=== PATIENT | male | born 1950 | race Caucasian/White ===

== ENCOUNTER → 2017-03-18 | Outpatient (CLI) | payer MEDICARE, OTHER ==
--- NOTE | 2017-03-18 16:41 | CT ---
EXAMINATION TYPE: CT foot RT wo con DATE OF EXAM: 03/18/2017 COMPARISON: NONE HISTORY: Injury 15 years ago. Surgery 5 years ago, pain since. Attention [address] DLP: 193.00 mGycm Automated exposure control for dose reduction was used. FINDINGS: Postsurgical repair along the anterior calcaneus is evident. Malone and screws are present. The metatarsals as visualized appear intact. Alignment with the cuneiforms is intact the joint spaces appear preserved. Hammertoes are present. No acute fractures are identified. Suspicious cortical ero ivonne to suggest osteomyelitis is not identified. Three-D reconstructed images are performed on the [employer] computer by the technologist and presented o n the computer. There is some mild increased density adjacent to the inferior medial malleolus. Correlate for ligamen t injury. Small amount of increased density may be adjacent to the inferior medial malleolus. No susp icious avulsions are identified. MRI could be performed to evaluate if there is clinical concern for ligament injury. Some narrowing of the medial ankle mortise may be present. IMPRESSION: INCREASED SIGNAL ADJACENT TO THE INFERIOR LATERAL MALLEOLUS AND TO A LESSER DEGREE INFERIOR MEDIAL MA LLEOLUS. THIS COULD BE RELATED TO LIGAMENT INJURY IN THE PROPER CLINICAL SETTING. MRI IS AVAILABLE IF ADDITIONAL EVALUATION IS REQUIRED. 2. NO ACUTE FRACTURES IDENTIFIED. 3. THE FIFTH METATARSAL APPEARS INTACT WITHOUT EVIDENCE OF FRACTURE OR EROSION.
== END | disposition home or self-care (01) ==
LOC: RADCTMAIN 14:51
PROVIDERS: ATTEND Orthopaedic Surgery
DX: M25.871 Other specified joint disorders, right ankle and foot (principal); Q66.7 Congenital pes cavus

== ENCOUNTER 2017-08-20 11:27 | Day surgery (SDC) | payer OTHER, MEDICARE ==
[2017-08-12 12:25] VITALS: BMI 47.0
[~2017-08-20 11:27] MED LIST: LACTATED RINGERS 1,000 ML IV SCH; TIMOLOL 0.5% OPHTH DROPS 5 ML BTL ONE
[2017-08-20] MEDS: CYCLOPENTOLATE 1% OPHTH SOLN 2 ML BTL OP ONE ×2 (12:23→13:05)
[2017-08-20] MEDS: FLURBIPROFEN 0.03% OPHTH DROPS 2.5 ML BTL OP ONE ×3 (12:26→13:17)
[2017-08-20] MEDS: PHENYLEPHRINE 10% OPHTH DROPS 5 ML BTL OP ONE ×3 (12:29→13:20)
[2017-08-20 13:23] VITALS: TEMP 99
[2017-08-20] MEDS ORDERED: PROPOFOL 10 MG/ML 20 ML VIAL IV ONE (13:48)
[2017-08-20] MEDS ORDERED: EPINEPHrine (PF) 0.5 ML in BALANCED SALT IRRIG SOLN COMB2 500 ML IRRIGATION ONE (13:57)
[2017-08-20] MEDS ORDERED: HYALURONATE SODIUM INTRAOCULAR 1 EACH SYRINGE (10MG/ML) INTRAOCULA ONE (14:00)
[2017-08-20] MEDS ORDERED: BALANCED SALT IRRIG SOLN COMB2 15 ML IRRIG.SOLN IRRIGATION ONE (14:00)
--- NOTE | 2017-08-20 14:09 | P.OP ---
Date of Procedure: 08/20/17 Procedure(s) Performed: PREOPERATIVE DIAGNOSIS: Cataract, right eye. POSTOPERATIVE DIAGNOSIS: Cataract, right eye. OPERATION: Phacoemulsification cataract, right eye. DESCRIPTION OF PROCEDURE: The patient was taken to the preoperative holding area. Intravenous Propofol was given so as to bring about adequate sedation. The following mixture was given for local anesthesia: 5 mL of 2% lidocaine, 5 mL of 0.75% Marcaine, and 1 mL of Wydase. Approximately 4 mL was injected in the retrobulbar space of the surgical eye. Additional 1 mL was then directed to the temporal area of the surgical eye. This was performed to allow adequate neurological block of the facial muscles. The patient was revived and then taken into the operative room. The patient was prepped and draped in the usual sterile manner for the operative eye. A lid speculum was put into position. The conjunctiva was resected back from the limbus in the 12 o'clock position. Bleeding was controlled with electrocautery. A #69 blade was then used and a half-thickness scleral incision approximately 1-mm posterior to the limbus was made on bare sclera. This was shelved in the clear cornea using a crescent knife. Next a 15-degree blade was used to make a stab incision at the 3 o' clock position at the corneolimbal interface. Keratome blade was then used and the superior wound was extended into the anterior chamber. Viscoelastic was injected into the anterior chamber and to maintain its form. Next, a cystotome was used and a continuous anterior capsulotomy was made without difficulty. Hydrodissection using a blunt cannula and BSS was performed. Phaco probe was then employed and a groove extending from 12 to 6 o'clock in the lens was created. A Herberth wand was used through the stab incision so as to perform a divide and conquer technique. Next an irrigation aspiration probe was utilized and any residual cortex was removed from the eye. Again, viscoelastic was injected into the anterior chamber. An Hao Restor 2.5 posterior chamber lens implant was placed in the cartridge and injected into the anterior chamber without difficulty. The Sinskey hook was utilized to spin the lens into position and this was again performed without any difficulty. The irrigation and aspiration probe was again employed and any residual viscoelastic was removed from the eye. Then BSS was injected into the limbal stab incision and the anterior chamber re-inflated. The conjunctiva was reapproximated using electrocautery. One drop of 0.25% Timoptic was placed over the corneal along with TobraDex ophthalmic ointment. Two sterile patches and a Gupta eye shield were taped into position. The patient was transported to the recovery room in stable condition. Pathology: none sent Condition: stable Disposition: same day
[2017-08-20 14:13] VITALS: RESP 18
[2017-08-20 14:39] VITALS: BP 114/71; PULSE 78
[2017-08-20] MEDS ORDERED: GENTAMICIN/PREDNISOL AC OPHTH OINT 3.5GM OPHTHALMIC ONE (23:00)
[2017-08-20] MEDS ORDERED: BUPIVACAINE (PF) 0.75% 5 ML, HYALURONIDASE, HUMAN RECOMB 150 UNIT, LIDOCAINE 2% (PF) 10... MISCELLANE ONE ×3 (23:00)
[2017-08-20] MEDS ORDERED: TIMOLOL 0.5% OPHTH DROPS 5 ML BTL OP ONE (23:00)
== END 2017-08-20 14:54 | disposition home or self-care (01) ==
LOC: OR 11:27
PROVIDERS: ATTEND Ophthalmology
DX: H25.11 Age-related nuclear cataract, right eye (principal); H04.129 Dry eye syndrome of unspecified lacrimal gland; I10 Essential (primary) hypertension; J30.2 Other seasonal allergic rhinitis; F32.9 Major depressive disorder, single episode, unspecified; M79.7 Fibromyalgia; K21.9 Gastro-esophageal reflux disease without esophagitis; Z91.048 Other nonmedicinal substance allergy status; Z79.891 Long term (current) use of opiate analgesic; Z79.82 Long term (current) use of aspirin; Z79.899 Other long term (current) drug therapy; Z88.5 Allergy status to narcotic agent; Z87.891 Personal history of nicotine dependence
CPT/HCPCS: 66984; V2632; V2788; J3470; J2001; J0171; J2704

== ENCOUNTER 2017-10-08 11:46 | Day surgery (SDC) | payer MEDICARE, OTHER ==
[2017-10-03 14:44] VITALS: BMI 47.3
[~2017-10-08 11:46] MED LIST changes: +LIDOCAINE 1% 20 ML VIAL (10MG/ML) FOR IV START INTRADERMA PRN; +ONDANSETRON 4 MG/2 ML VIAL IVP ONE; -TIMOLOL 0.5% OPHTH DROPS 5 ML BTL ONE
[2017-10-08] MEDS: PHENYLEPHRINE 10% OPHTH DROPS 5 ML BTL OP ONE ×3 (14:47→15:05)
[2017-10-08] MEDS: CYCLOPENTOLATE 1% OPHTH SOLN 2 ML BTL OP ONE ×3 (14:50→15:08)
[2017-10-08 14:51] VITALS: TEMP 98.2
[2017-10-08] MEDS: FLURBIPROFEN 0.03% OPHTH DROPS 2.5 ML BTL OP ONE ×3 (14:53→15:11)
[2017-10-08] MEDS ORDERED: PROPOFOL 10 MG/ML 20 ML VIAL IV ONE (15:29)
[2017-10-08] MEDS ORDERED: TETRACAINE 0.5% OPHTH (PF) DROPS 4 ML BTL LEFT EYE ONE (15:29)
[2017-10-08] MEDS ORDERED: MIDAZOLAM 2 MG/2 ML VIAL ONE (15:29)
[2017-10-08] MEDS ORDERED: LIDOCAINE 1% INJ 10MG/ML (20 ML MDV) ONE (15:29)
--- NOTE | 2017-10-08 15:53 | P.OP ---
Date of Procedure: 10/08/17 Procedure(s) Performed: PREOPERATIVE DIAGNOSIS: Cataract, left eye. POSTOPERATIVE DIAGNOSIS: Cataract, left eye. OPERATION: Phacoemulsification cataract, left eye. DESCRIPTION OF PROCEDURE: The patient was taken to the preoperative holding area. Intravenous Propofol was given so as to bring about adequate sedation. The following mixture was given for local anesthesia: 5 mL of 2% lidocaine, 5 mL of 0.75% Marcaine, and 1 mL of Wydase. Approximately 4 mL was injected in the retrobulbar space of the surgical eye. Additional 1 mL was then directed to the temporal area of the surgical eye. This was performed to allow adequate neurological block of the facial muscles. The patient was revived and then taken into the operative room. The patient was prepped and draped in the usual sterile manner for the operative eye. A lid speculum was put into position. The conjunctiva was resected back from the limbus in the 12 o'clock position. Bleeding was controlled with electrocautery. A #69 blade was then used and a half-thickness scleral incision approximately 1-mm posterior to the limbus was made on bare sclera. This was shelved in the clear cornea using a crescent knife. The steep axis of astigmatism was marked using a pr--inked corneal marking device. Next a 15-degree blade was used to make a stab incision at the 3 o'clock position at the corneolimbal interface. Keratome blade was then used and the superior wound was extended into the anterior chamber. Viscoelastic was injected into the anterior chamber and to maintain its form. Next, a cystotome was used and a continuous anterior capsulotomy was made without difficulty. Hydrodissection using a blunt cannula and BSS was performed. Phaco probe was then employed and a groove extending from 12 to 6 o' clock in the lens was created. A Herberth wand was used through the stab incision so as to perform a divide and conquer technique. Next an irrigation aspiration probe was utilized and any residual cortex was removed from the eye. Again, viscoelastic was injected into the anterior chamber. An Hao Restor toric 2.5 posterior chamber lens implant was placed in the cartridge and injected into the anterior chamber without difficulty. The Sinskey hook was utilized to spin the lens into position and this was again performed without any difficulty. The irrigation and aspiration probe was again employed and any residual viscoelastic was removed from the eye. Then BSS was injected into the limbal stab incision and the anterior chamber re-inflated. The conjunctiva was reapproximated using electrocautery. One drop of 0.25% Timoptic was placed over the corneal along with TobraDex ophthalmic ointment. Two sterile patches and a Gupta eye shield were taped into position. The patient was transported to the recovery room in stable condition. Pathology: none sent Condition: stable Disposition: same day
[2017-10-08 16:05] VITALS: RESP 16
[2017-10-08] MEDS ORDERED: HYALURONATE SODIUM INTRAOCULAR 1 EACH SYRINGE (10MG/ML) INTRAOCULA ONE (16:07)
[2017-10-08] MEDS ORDERED: BALANCED SALT IRRIG SOLN COMB2 15 ML IRRIG.SOLN IRRIGATION ONE (16:07)
[2017-10-08 16:15] VITALS: BP 125/77; PULSE 88
[2017-10-08] MEDS ORDERED: TIMOLOL 0.5% OPHTH DROPS 5 ML BTL OP ONE (23:00)
[2017-10-08] MEDS ORDERED: GENTAMICIN/PREDNISOL AC OPHTH OINT 3.5GM OPHTHALMIC ONE (23:00)
[2017-10-08] MEDS ORDERED: BUPIVACAINE (PF) 0.75% 5 ML, HYALURONIDASE, HUMAN RECOMB 150 UNIT, LIDOCAINE 2% (PF) 10... MISCELLANE ONE ×3 (23:00)
== END 2017-10-08 16:27 | disposition home or self-care (01) ==
LOC: OR 11:46
PROVIDERS: ATTEND Ophthalmology
DX: H25.12 Age-related nuclear cataract, left eye (principal); I10 Essential (primary) hypertension; F32.9 Major depressive disorder, single episode, unspecified; K21.9 Gastro-esophageal reflux disease without esophagitis; Z88.5 Allergy status to narcotic agent; G62.9 Polyneuropathy, unspecified; E66.01 Morbid (severe) obesity due to excess calories; Z79.82 Long term (current) use of aspirin; Z98.41 Cataract extraction status, right eye; Z68.42 Body mass index [BMI] 45.0-49.9, adult; Z87.891 Personal history of nicotine dependence; Z79.899 Other long term (current) drug therapy
CPT/HCPCS: 66984; V2632; V2788; J2250; J3470; J2001 ×2; J2704

== ENCOUNTER → 2019-02-27 | Outpatient (CLI) | payer MEDICARE, OTHER ==
--- NOTE | 2019-02-27 15:38 | CT ---
EXAMINATION TYPE: CT abdomen pelvis wo con DATE OF EXAM: 02/27/2019 HISTORY: flank pain, hx of stones CT DLP: 1295 mGycm. Automated Exposure Control for Dose Reduction was Utilized. TECHNIQUE: CT scan of the abdomen and pelvis is performed without oral or IV contrast. COMPARISON: NONE FINDINGS: Within the limitations of a non-contrast study, the following observations are made. LUNG BASES: Coronary artery calcification is present which is noted noted marker for underlying coron arvind artery disease. LIVER/GB: Subcentimeter hyperdense focus posterior right periventricular 26 is too small to further characterize. Cholecystectomy clips are present. Liver is low dense consis tent with diffuse fatty infiltration.. PANCREAS: Mild focal atrophy of the pancreatic head. SPLEEN: Small splenule anterior inferior splenic hilum axial image 63. ADRENALS: No significant abnormality is seen. KIDNEYS: Cortical thinning both kidneys. No renal stones or hydronephrosis. No intraluminal calculi a nd poorly distended bladder BOWEL: Normal-appearing appendix from cecum in the right upper pelvis. No suspicious small or large b owel dilatation. GENITAL ORGANS: No gross abnormality seen. LYMPH NODES: No greater than 1cm abdominal or pelvic lymph nodes are appreciated. OSSEOUS STRUCTURES: Mild disc space narrowing with vacuum disc phenomenon L1-L2 level. OTHER: Small to moderate-sized fat-containing right inguinal hernia. Overlying Vertical scar in the midline of the anterior abdomen. IMPRESSION: No renal stones or hydronephrosis is seen bilaterally. No acute finding identified on non contrast CT.
== END | disposition home or self-care (01) ==
LOC: RADCTMAIN 15:06
PROVIDERS: ATTEND Family Medicine
DX: R10.9 Unspecified abdominal pain (principal)
CPT/HCPCS: 74176

== ENCOUNTER → 2019-12-30 | Outpatient (CLI) | payer MEDICARE, OTHER ==
--- NOTE | 2019-12-30 12:34 | XR ---
Sacroiliac joints HISTORY: Sacrococcygeal disorders, pain 4 views of the sacroiliac joints. There is no evident ankylosis, erosion, or hypertrophic change at the sacroiliac joints. Question sanna e sclerosis at the right sacroiliac joint as compared to left. Bone mineralization is normal in the l eft, joint spaces and alignment are maintained. IMPRESSION: Question some sclerosis involving the right sacroiliac joint, MRI or CT is of increased s ensitivity and specificity.
== END | disposition home or self-care (01) ==
LOC: RADXRMAIN 10:55
PROVIDERS: ATTEND Internal Medicine Rheumatology
DX: M53.3 Sacrococcygeal disorders, not elsewhere classified (principal)
CPT/HCPCS: 72202

== ENCOUNTER → 2023-04-05 | Outpatient (CLI) | payer MEDICARE, OTHER ==
[2023-04-05 16:19] LABS: Prostate Specific Antigen 0.8 ng/mL (0.000-6.500)
[2023-04-05 20:52] LABS: HCT 44.8 % (39.6-50.0); HGB 13.5 d/dL (13.0-17.0); MCH 23.7 pg (27.0-32.0); MCHC 30.1 d/dL (32.0-37.0); MCV 78.7 FL (80.0-97.0); NRBC Per 100 WBC 0 X 10*3/uL (0.00-0.01); Platelet Count 316 X 10*3/uL (140-440); RBC 5.69 X 10*6/uL (4.40-5.60); RDW 22.7 % (11.5-14.5)
== END | disposition home or self-care (01) ==
LOC: LABWHC1 08:27
PROVIDERS: ATTEND Internal Medicine Endocrinology, Diabetes & Metabolism
DX: E29.1 Testicular hypofunction (principal)
CPT/HCPCS: 36415; 84153; 84403; 85027

== ENCOUNTER 2023-04-29 18:28 | Inpatient (IN) | payer MEDICARE, OTHER ==
--- NOTE | 2023-04-29 19:36 | ED ---
General Adult HPI - General Source: patient, RN notes reviewed Mode of arrival: ambulatory Limitations: no limitations <Shyam Newman - Last Filed: 04/29/23 19:35> - General Source: RN notes reviewed, old records reviewed Limitations: no limitations - History of Present Illness -: week(s) Radiation: non-radiation Severity scale (1-10): 10 (Shortness of breath severe) Consistency: constant Improves with: none Worsens with: movement Associated Symptoms: chest pain, shortness of breath, weakness Treatments Prior to Arrival: none <Joesph Mcgee - Last Filed: 05/06/23 14:03> - General Stated complaint: SOB anxiety Time Seen by Provider: 04/29/23 19:35 - History of Present Illness Initial comments: 72-year-old male presents emergency Department with chief complaint of shortness of breath. Patient's been having increasing shortness with the last couple weeks he states he has trouble laying flat, laying back. He states it's increase in leg swelling. He states he weighs himself weekly has gained weight but states his place of steroids. Patient has a history of CHF (Shyam Newman) This is a 72-year-old male to the emergency department for evaluation today. Patient presents today for evaluation of shortness of breath severe shortness of breath especially when he lays down. Significant lower extremity swelling as well. Patient has increased weight gain. Patient states he was just in the hospital about a week ago but left secondary to disagreements with position. Patient has otherwise no travel show sick contacts denying current fever. Currently on antibiotics for possible pneumonia (Joesph Mcgee) - Related Data Home Medications Medication Instructions Recorded Confirmed RABEprazole SODIUM 20 mg PO DAILY 08/12/17 04/30/23 Dapagliflozin Propanediol [Farxiga] 5 mg PO DAILY 04/30/23 04/30/23 Doxycycline [Vibramycin] 100 mg PO BID 04/30/23 04/30/23 Dulaglutide [Trulicity] 1.5 mg SQ SA 04/30/23 04/30/23 Fluticasone Propion/Salmeterol 2 puff INHALATION RT-BID 04/30/23 04/30/23 [Fluticasone-Salmeterol 45-21] Furosemide [Lasix] 20 mg PO DAILY 04/30/23 04/30/23 Melatonin 3 mg PO HS 04/30/23 04/30/23 Montelukast [Singulair] 10 mg PO DAILY 04/30/23 04/30/23 Tamsulosin HCl [Flomax] 0.4 mg PO DAILY 04/30/23 04/30/23 Testosterone Cypionate 200 mg IM Q14D 04/30/23 04/30/23 [Depo-Testosterone] allopurinoL 100 mg PO DAILY 04/30/23 04/30/23 hydrOXYzine pamoate [Vistaril] 25 mg PO BID PRN 04/30/23 04/30/23 methylPREDNISolone [Medrol Dose See Taper PO DIRECTED 04/30/23 04/30/23 Pack] Previous Rx's Medication Instructions Recorded Aspirin 81 mg PO DAILY tab 05/04/23 Atorvastatin [Lipitor] 20 mg PO HS 30 Days #30 tab 05/04/23 Losartan [Cozaar] 25 mg PO HS 30 Days #30 tab 05/04/23 Metoprolol Succinate (ER) [Toprol 25 mg PO DAILY 30 Days #30 tab 05/04/23 XL] Nitroglycerin Sl Tabs [Nitrostat] 0.4 mg SUBLINGUAL Q5M PRN 30 Days 05/04/23 #20 tab busPIRone HCl [Buspar] 5 mg PO BID 30 Days #30 tab 05/04/23 Allergies Allergy/AdvReac Type Severity Reaction Status Date / Time morphine Allergy Rash/Hives Verified 04/30/23 07:09 Review of Systems ROS Other: All systems not noted in ROS Statement are negative. <Shyam Newman - Last Filed: 04/29/23 19:35> ROS Other: All systems not noted in ROS Statement are negative. <Joesph Mcgee - Last Filed: 05/06/23 14:03> ROS Statement: Those systems with pertinent positive or pertinent negative responses have been documented in the HPI. Past Medical History Past Medical History: Eye Disorder, Fibromyalgia, GERD/Reflux, Musculoskeletal Disorder, Osteoarthritis (OA) Additional Past Medical History / Comment(s): Neuropathy; pinched nerve, LT CATARACT History of Any Multi-Drug Resistant Organisms: MRSA Date of last positivie culture/infection: 2015 MDRO Source:: L Elbow Past Surgical History: Cholecystectomy, Hernia Repair, Orthopedic Surgery, Ton sillectomy Additional Past Surgical History / Comment(s): Hernia repair x5; R & L knee arthroscopy; R foot reconstruction; R wrist FX X2;Vasectomy; Rhinoplasty X2, RT CATARACT REMOVED 08/20/17 Past Anesthesia/Blood Transfusion Reactions: No Reported Reaction Past Psychological History: No Psychological Hx Reported Past Alcohol Use History: Rare Past Drug Use History: None Reported - Past Family History Mother Family Medical History: Cancer Additional Family Medical History / Comment(s): Breast CA <Shyam Newman M - Last Filed: 04/29/23 19:35> General Exam <CamillashahnazShyam Alberto - Last Filed: 04/29/23 19:35> General appearance: alert, in no apparent distress, anxious, in distress Head exam: Present: atraumatic, normocephalic, normal inspection Eye exam: Present: normal appearance, PERRL, EOMI. Absent: scleral icterus, conjunctival injection, periorbital swelling ENT exam: Present: normal exam, mucous membranes dry Neck exam: Present: normal inspection. Absent: tenderness, meningismus, lymphadenopathy Respiratory exam: Present: respiratory distress, wheezes, accessory muscle use, decreased breath sounds, prolonged expiratory. Absent: rales, rhonchi, stridor Cardiovascular Exam: Present: regular rate, normal rhythm, normal heart sounds. Absent: systolic murmur, diastolic murmur, rubs, gallop, clicks GI/Abdominal exam: Present: soft, normal bowel sounds. Absent: distended, tenderness, guarding, rebound, rigid Extremities exam: Present: normal inspection, full ROM, normal capillary refill. Absent: tenderness, pedal edema, joint swelling, calf tenderness Back exam: Present: normal inspection Neurological exam: Present: alert, oriented X3, CN II-XII intact Psychiatric exam: Present: normal affect, normal mood Skin exam: Present: warm, dry, intact, normal color. Absent: rash <Joesph Mcgee - Last Filed: 05/06/23 14:03> - General Exam Comments Initial Comments: Visual Physical Exam Vital signs reviewed General: Well-appearing, nontoxic, no acute distress. Head: Normocephalic, atraumatic Eyes: PERRLA, EOMI ENT: Airway patent Chest: Nonlabored breathing Skin: No visual rash, normal skin tone Neuro: Alert and oriented 3 Musculoskeletal: No gross abnormalities (Shyam Newman) Course <Joesph Mcgee - Last Filed: 05/06/23 14:03> Vital Signs 04/29/23 04/30/23 04/30/23 19:33 00:00 00:10 Temperature Pulse Rate 79 70 71 Pulse Rate [ Pulse Oximetery ] Respiratory 22 18 18 Rate Blood Pressure 137/83 127/67 146/89 Blood Pressure [Left Arm] O2 Sat by Pulse 98 86 L 95 Oximetry 04/30/23 04/30/23 04/30/23 01:00 02:00 03:00 Temperature Pulse Rate 69 101 H 79 Pulse Rate [ Pulse Oximetery ] Respiratory 18 20 Rate Blood Pressure 146/89 129/93 142/80 Blood Pressure [Left Arm] O2 Sat by Pulse 95 92 L 94 L Oximetry 04/30/23 04/30/23 04/30/23 05:00 08:03 20:00 Temperature 98.5 F 98.3 F Pulse Rate 70 86 Pulse Rate [ 85 Pulse Oximetery ] Respiratory 18 20 Rate Blood Pressure 114/71 Blood Pressure 116/75 [Left Arm] O2 Sat by Pulse 94 L 93 L 98 Oximetry 04/30/23 21:00 Temperature 98.3 F Pulse Rate 87 Pulse Rate [ Pulse Oximetery ] Respiratory 22 Rate Blood Pressure 109/81 Blood Pressure [Left Arm] O2 Sat by Pulse 95 Oximetry - Reevaluation(s) Reevaluation #1: 04/30/23 00:46 Medical records reviewed (Joesph Mcgee) Reevaluation #2: 04/30/23 00:46 Patient symptoms unchanged 04/30/23 00:46 Patient was hypoxic episodes requiring supplemental oxygen (Joesph Mcgee) Reevaluation #3: 04/30/23 00:46 Patient informed results questions answered (Joesph Mcgee) Reevaluation #4: 04/30/23 00:46 Was pt. sent in by a medical professional or institution (, PA, DIESEL ENGINE INSPECTOR, urgent care, hospital, or [facility]...) When possible be specific @ -no Did you speak to anyone other than the patient for history (EMS, parent, family, police, friend...)? What history was obtained from this source @ -no Did you review nursing and triage notes (agree or disagree)? Why? @ -agree Are old charts reviewed (outside hosp., previous admission, EMS record, old EKG, old radiological studies, urgent care reports/EKG's, [facility] records)? Report findings @ -yes Differential Diagnosis (chest pain, altered mental status, abdominal pain women, abdominal pain men, vaginal bleeding, weakness, fever, dyspnea, syncope, headache, dizziness, GI bleed, back pain, seizure, CVA, palpatations, mental health, musculoskeletal)? @ -prior EKG interpreted by me (3pts min.). @ -yes X-rays interpreted by me (1pt min.). @ -yes CT interpreted by me (1pt min.). @ -no U/S interpreted by me (1pt. min.). @ -no What testing was considered but not performed or refused? (CT, X-rays, U/S, labs)? Why? @ -none What meds were considered but not given or refused? Why? @ -none Did you discuss the management of the patient with other professionals (professionals i.e. , PA, DIESEL ENGINE INSPECTOR, lab, RT, psych nurse, high school social studies tutor, bilingual loan processor, teacher, business liaison officer, case planner)? Give summary @ -no Was smoking cessation discussed for >3mins.? @ -no Was critical care preformed (if so, how long)? @ -no Were there social determinants of health that impacted care today? How? (Homelessness, low income, unemployed, alcoholism, drug addiction, transportation, low edu. Level, literacy, decrease access to med. care, correction, rehab)? @ -none Was there de-escalation of care discussed even if they declined (Discuss DNR or withdrawal of care, Hospice)? DNR status @ -no What co-morbidities impacted this encounter? (DM, HTN, Smoking, COPD, CAD, Cancer, CVA, ARF, Chemo, Hep., AIDS, mental health diagnosis, sleep apnea, morbid obesity)? @ -none Was patient admitted / discharged? Hospital course, mention meds given and route, prescriptions, significant lab abnormalities, going to OR and other per tinent info. @ - 72 male to the emergency department for evaluation severe shortness of breath Bunning of significant pulmonary edema with pneumonia we'll place on antibiotics diuresis and breathing supportive care Discharged Undiagnosed new problem with uncertain prognosis? @ -no Drug Therapy requiring intensive monitoring for toxicity (Heparin, Nitro, Insulin, Cardizem)? @ -no Were any procedures done? @ -no Diagnosis/symptom? @ -Pulmonary edema, pneumonia COPD hypoxia Acute, or Chronic, or Acute on Chronic? @ -Acute Uncomplicated (without systemic symptoms) or Complicated (systemic symptoms)? @ -Complicated Side effects of treatment? @ -no Exacerbation, Progression, or Severe Exacerbation? @ -exacerbation Poses a threat to life or bodily function? How? (Chest pain, USA, IA, pneumonia, PE, COPD, DKA, ARF, appy, cholecystitis, CVA, Diverticulitis, Homicidal, Suicidal, threat to staff... and all critical care pts) @ -yes significant respiratory distress and hypoxia (Joesph Mcgee) Reevaluation #5: 04/30/23 00:46 Differential Dyspnea: Coronary syndrome, arrhythmia, tamponade, asthma, COPD, pulmonary embolism, pneumonia, pneumothorax, pulmonary effusion, anaphylaxis, diabetic ketoacidosis, flailed chest, pulmonary contusion, diaphragmatic rupture, anemia, neuromuscular, this is not meant to be an all-inclusive list. (Joesph Mcgee) - Consultations Consultation #1: Spoke with admitting physicians who agree to admit this patient (Joesph Mcgee) EKG Findings - EKG Comments: EKG Findings:: EKG is sinus 72 OK 157 QRS 112 QTC 397 - EKG Results: EKG: interpreted by ERMD <Joesph Mcgee - Last Filed: 05/06/23 14:03> Medical Decision Making <Shyam Newman - Last Filed: 04/29/23 19:35> - Lab Data Result diagrams: 05/03/23 06:54 05/03/23 06:54 - EKG Data -: EKG Interpreted by Me - Radiology Data Radiology results: report reviewed (Chest x-ray positive for pulmonary edema possible COPD), image reviewed <Joeshp Mcgee - Last Filed: 05/06/23 14:03> - Medical Decision Making I performed a quick note portion of the signed Shyam Newman PA-C (Shyam Newman) 72 male to the emergency department for evaluation severe shortness of breath Bunning of significant pulmonary edema with pneumonia we'll place on antibiotics diuresis and breathing supportive care (Joesph Mcgee) - Lab Data Lab Results 04/29/23 04/29/23 04/29/23 Range/Units 19:56 19:56 19:56 WBC 17.8 H (3.8-10.6) k/uL RBC 5.67 (4.30-5.90) m/uL Hgb 14.1 (13.0-17.5) gm/dL Hct 45.2 (39.0-53.0) % MCV 79.6 L (80.0-100.0) fL MCH 24.8 L (25.0-35.0) pg MCHC 31.2 (31.0-37.0) g/dL RDW 19.7 H (11.5-15.5) % Plt Count 356 (150-450) k/uL MPV 6.7 Neutrophils % 81 % Lymphocytes % 13 % Monocytes % 6 % Eosinophils % 0 % Basophils % 0 % Neutrophils # 14.3 H (1.3-7.7) k/uL Lymphocytes # 2.2 (1.0-4.8) k/uL Monocytes # 1.0 (0-1.0) k/uL Eosinophils # 0.0 (0-0.7) k/uL Basophils # 0.1 (0-0.2) k/uL Hypochromasia Moderate Anisocytosis Slight Microcytosis Slight PT 10.3 (9.0-12.0) sec INR 1.0 (<1.2) APTT 23.9 (22.0-30.0) sec Sodium 139 (137-145) mmol/L Potassium 4.4 (3.5-5.1) mmol/L Chloride 106 (98-107) mmol/L Carbon Dioxide 20 L (22-30) mmol/L Anion Gap 13 mmol/L BUN 20 (9-20) mg/dL Creatinine 0.84 (0.66-1.25) mg/dL Est GFR (CKD-EPI)AfAm >90 (>60 ml/min/1.73 sqM) Est GFR (CKD-EPI)NonAf 88 (>60 ml/min/1.73 sqM) Glucose 127 H (74-99) mg/dL Plasma Lactic Acid Dean (0.7-2.0) mmol/L Calcium 9.3 (8.4-10.2) mg/dL Magnesium 2.0 (1.6-2.3) mg/dL Total Bilirubin 0.3 (0.2-1.3) mg/dL AST 20 (17-59) U/L ALT 14 (4-49) U/L Alkaline Phosphatase 84 (38-126) U/L Troponin I (0.000-0.034) ng/mL NT-Pro-B Natriuret Pep 103 pg/mL Total Protein 7.0 (6.3-8.2) g/dL Albumin 4.2 (3.5-5.0) g/dL 04/29/23 04/29/23 Range/Units 19:56 19:56 WBC (3.8-10.6) k/uL RBC (4.30-5.90) m/uL Hgb (13.0-17.5) gm/dL Hct (39.0-53.0) % MCV (80.0-100.0) fL MCH (25.0-35.0) pg MCHC (31.0-37.0) g/dL RDW (11.5-15.5) % Plt Count (150-450) k/uL MPV Neutrophils % % Lymphocytes % % Monocytes % % Eosinophils % % Basophils % % Neutrophils # (1.3-7.7) k/uL Lymphocytes # (1.0-4.8) k/uL Monocytes # (0-1.0) k/uL Eosinophils # (0-0.7) k/uL Basophils # (0-0.2) k/uL Hypochromasia Anisocytosis Microcytosis PT (9.0-12.0) sec INR (<1.2) APTT (22.0-30.0) sec Sodium (137-145) mmol/L Potassium (3.5-5.1) mmol/L Chloride (98-107) mmol/L Carbon Dioxide (22-30) mmol/L Anion Gap mmol/L BUN (9-20) mg/dL Creatinine (0.66-1.25) mg/dL Est GFR (CKD-EPI)AfAm (>60 ml/min/1.73 sqM) Est GFR (CKD-EPI)NonAf (>60 ml/min/1.73 sqM) Glucose (74-99) mg/dL Plasma Lactic Acid Dean 1.9 (0.7-2.0) mmol/L Calcium (8.4-10.2) mg/dL Magnesium (1.6-2.3) mg/dL Total Bilirubin (0.2-1.3) mg/dL AST (17-59) U/L ALT (4-49) U/L Alkaline Phosphatase (38-126) U/L Troponin I <0.012 (0.000-0.034) ng/mL NT-Pro-B Natriuret Pep pg/mL Total Protein (6.3-8.2) g/dL Albumin (3.5-5.0) g/dL Disposition <Shyam Newman - Last Filed: 04/29/23 19:35> Is patient prescribed a controlled substance at d/c from ED?: No Time of Disposition: 00:45 <Joesph Mcgee - Last Filed: 05/06/23 14:03> Clinical Impression: Acute pulmonary edema, Community acquired pneumonia, Hypoxia Disposition: ADMITTED IP TO THIS HOSP Condition: Serious
--- NOTE | 2023-04-29 20:13 | XR ---
EXAMINATION TYPE: XR chest 2V DATE OF EXAM: 04/29/2023 7:59 PM CLINICAL INDICATION:Male, 72 years old with history of difficulty breathing; COMPARISON: None TECHNIQUE: XR chest 2V Frontal and lateral views of the chest. FINDINGS: Lungs/Pleura: There is flattening of the diaphragm with increased lucency of the lungs. No evidence o f pneumothorax, pleural effusion or focal consolidation. Pulmonary vascularity: Pulmonary vascular congestion. Heart/mediastinum: Cardiomediastinal silhouette is enlarged and stable. Musculoskeletal: No acute osseous pathology. IMPRESSION: 1. Low lung volumes with a generalized hazy appearance which could represent atelectasis versus pulm onary edema correlate with serum BNP. 2. COPD changes.
[2023-04-29 20:25] LABS: Anisocytosis Slight; Basophils # (A) 0.1 k/uL (0-0.2); Basophils % (A) 0 %; Eosinophils % (A) 0 %; HCT 45.2 % (39.0-53.0); HGB 14.1 gm/dL (13.0-17.5); Hypochromasia Moderate; Lymphocytes # (A) 2.2 k/uL (1.0-4.8); Lymphocytes % (A) 13 %; MCH 24.8 pg (25.0-35.0); MCHC 31.2 g/dL (31.0-37.0); MCV 79.6 fL (80.0-100.0); Mean Platelet Volume 6.7; Microcytosis Slight; Monocytes % (A) 6 %; Neutrophils # (A) 14.3 k/uL (1.3-7.7); Neutrophils % (A) 81 %; Platelet Count 356 k/uL (150-450); RBC 5.67 m/uL (4.30-5.90); RDW 19.7 % (11.5-15.5); WBC 17.8 k/uL (3.8-10.6)
[2023-04-29 20:27] LABS: ALT 14 U/L (4-49); AST 20 U/L (17-59); African American GFR (CKD) >90 (>60 ml/min/1.73 sqM); Albumin 4.2 g/dL (3.5-5.0); Alkaline Phosphatase 84 U/L (38-126); Anion Gap 13 mmol/L; Blood Urea Nitrogen 20 mg/dL (9-20); Calcium 9.3 mg/dL (8.4-10.2); Carbon Dioxide 20 mmol/L (22-30); Chloride 106 mmol/L (98-107); Glucose 127 mg/dL (74-99); Non-African American GFR(CKD) 88 (>60 ml/min/1.73 sqM); Potassium 4.4 mmol/L (3.5-5.1); Sodium 139 mmol/L (137-145); Total Bilirubin 0.3 mg/dL (0.2-1.3)
[2023-04-29 20:34] LABS: NT-Pro-B-Type Natriuretic Pept 103 pg/mL; Partial Thromboplastin Time 23.9 sec (22.0-30.0); Prothrombin Time 10.3 sec (9.0-12.0)
[2023-04-30] MEDS ORDERED: NALOXONE 0.4 MG/ML 1 ML VIAL IV PRN (00:41)
[2023-04-30] MEDS ORDERED: FUROSEMIDE 10 MG/ML 10 ML VIAL IV STA (00:41)
[2023-04-30] MEDS ORDERED: ONDANSETRON 4 MG/2 ML VIAL IVP PRN (00:41)
[2023-04-30] MEDS ORDERED: AZITHROMYCIN 500 MG in SODIUM CHLORIDE 0.9% 250 ML IVPB STA (00:43)
[2023-04-30] MEDS ORDERED: FUROSEMIDE 20 MG TAB PO SCH (09:00)
[2023-04-30] MEDS ORDERED: LOSARTAN 25 MG TAB PO SCH (09:00)
[2023-04-30] MEDS: FUROSEMIDE 40 MG TAB PO SCH (09:55)
--- NOTE | 2023-04-30 10:29 | P.CRDCN ---
History of Present Illness History of present illness: HISTORY OF PRESENT ILLNESS: This is a 72-year-old male with a past medical history significant for diabetes, fibromyalgia, and GERD. Patient does not follow with a wine steward/stewardess. We have been asked to see the patient in consultation for congestive heart failure. Irma ent examined at the bedside in the emergency room. Patient presented to the hospital with a chief complaint of shortness of breath and increased lower extremity edema. Patient states he has had edema in his lower extremities since 2011. However he reports it has gotten worse over the past 4 weeks. He denies a previous history of congestive heart failure. The patient was given a one- time dose of IV Lasix in the emergency room. He reports improvement in his lower summary edema. He currently denies any shortness of breath. He denies any chest pain or pressure. Vital signs are stable. Patient's blood pressure running on the higher side with a systolic in the 140s. The patient denies a history of hypertension. * EKG: Not available at the time of this dictation * Chest xray low lung volumes with generalized hazy appearance which could are present atelectasis versus pulmonary edema. COPD changes. * Current home cardiac medications include Lasix 20 mg daily REVIEW OF SYSTEMS: At the time of my exam: CONSTITUTIONAL: Denies fever or chills. HEENT: Denies blurred vision, vision changes, or eye pain. Denies hemoptysis CARDIOVASCULAR: Denies chest pain. Denies orthopnea. Denies PND. Denies palpitations RESPIRATORY: Denies shortness of breath. GASTROINTESTINAL: Denies abdominal pain. Denies nausea or vomiting. HEMATOLOGIC: Denies bleeding disorders. GENITOURINARY: Denies any blood in urine. SKIN: Denies pruitis. Denies rash. PHYSICAL EXAM: VITAL SIGNS: Reviewed. GENERAL: Well-developed in no acute distress. HEENT: Head is normocephalic. Pupils are equal, round. Sclerae anicteric. Mucous membranes of the mouth are moist. Neck supple. No JVD or thyromegaly LUNGS: Respirations even and unlabored. Lungs essentially clear to auscultation bilaterally. HEART: Regular rate and rhythm. S1 and S2 heard. ABDOMEN: Soft. Nondistended. Nontender. EXTREMITIES: Normal range of motion. No clubbing or cyanosis. Peripheral p ulses intact. 2+ bilateral lower extremity edema NEUROLOGIC: Awake and alert. Oriented x 3. ASSESSMENT: Shortness of breath Acute on chronic lower extremity edema, proBNP within normal limits at 103 Possible pneumonia Leukocytosis Elevated blood pressure, suspect hypertension Diabetes Fibromyalgia GERD PLAN: Obtain EKG Resume home Lasix. Increase dosage to 40 mg daily Add losartan 25 mg daily Obtain 2-D echo to assess cardiac structure and function Check TSH, hemoglobin A1c, and lipid panel Further recommendations pending patient's course Nurse practitioner note has been reviewed by physician. Signing provider agrees with the documented findings, assessment, and plan of care. Past Medical History Past Medical History: Eye Disorder, Fibromyalgia, GERD/Reflux, Musculoskeletal Disorder, Osteoarthritis (OA) Additional Past Medical History / Comment(s): Neuropathy; pinched nerve, LT CATARACT History of Any Multi-Drug Resistant Organisms: MRSA Date of last positivie culture/infection: 2015 MDRO Source:: L Elbow Past Surgical History: Cholecystectomy, Hernia Repair, Orthopedic Surgery, Tonsillectomy Additional Past Surgical History / Comment(s): Hernia repair x5; R & L knee arthroscopy; R foot reconstruction; R wrist FX X2;Vasectomy; Rhinoplasty X2, RT CATARACT REMOVED 08/20/17 Past Anesthesia/Blood Transfusion Reactions: No Reported Reaction Past Psychological History: No Psychological Hx Reported Past Alcohol Use History: Rare Past Drug Use History: None Reported - Past Family History Mother Family Medical History: Cancer Additional Family Medical History / Comment(s): Breast CA Medications and Allergies Home Medications Medication Instructions Recorded Confirmed Type RABEprazole SODIUM 20 mg PO DAILY 08/12/17 04/30/23 History Dapagliflozin Propanediol [Farxiga] 5 mg PO DAILY 04/30/23 04/30/23 History Doxycycline [Vibramycin] 100 mg PO BID 04/30/23 04/30/23 History Dulaglutide [Trulicity] 1.5 mg SQ SA 04/30/23 04/30/23 History Fluticasone Propion/Salmeterol 2 puff INHALATION RT-BID 04/30/23 04/30/23 History [Fluticasone-Salmeterol 45-21] Furosemide [Lasix] 20 mg PO DAILY 04/30/23 04/30/23 History Melatonin 3 mg PO HS 04/30/23 04/30/23 History Montelukast [Singulair] 10 mg PO DAILY 04/30/23 04/30/23 History Tamsulosin HCl [Flomax] 0.4 mg PO DAILY 04/30/23 04/30/23 History Testosterone Cypionate 200 mg IM Q14D 04/30/23 04/30/23 History [Depo-Testosterone] allopurinoL 100 mg PO DAILY 04/30/23 04/30/23 History hydrOXYzine pamoate [Vistaril] 25 mg PO BID PRN 04/30/23 04/30/23 History methylPREDNISolone [Medrol Dose See Taper PO DIRECTED 04/30/23 04/30/23 History Pack] Allergies Allergy/AdvReac Type Severity Reaction Status Date / Time morphine Allergy Rash/Hives Verified 04/30/23 07:09 Physical Exam Vitals: Vital Signs Pulse Resp BP Pulse Ox 04/30/23 05:00 70 94 L 04/30/23 03:00 79 142/80 94 L 04/30/23 02:00 101 H 20 129/93 92 L 04/30/23 01:00 69 18 146/89 95 04/30/23 00:10 71 18 146/89 95 04/30/23 00:00 70 18 127/67 86 L 04/29/23 19:33 79 22 137/83 98 Intake and Output 04/29/23 04/30/23 04/30/23 22:59 06:59 14:59 Other: Weight 154.221 kg Results 04/29/23 19:56 04/29/23 19:56 Cardiac Enzymes 04/29/23 04/29/23 04/30/23 Range/Units 19:56 19:56 03:52 AST 20 (17-59) U/L Troponin I <0.012 <0.012 (0.000-0.034) ng/mL 04/30/23 Range/Units 07:45 AST (17-59) U/L Troponin I <0.012 (0.000-0.034) ng/mL Coagulation 04/29/23 Range/Units 19:56 PT 10.3 (9.0-12.0) sec APTT 23.9 (22.0-30.0) sec CBC 04/29/23 Range/Units 19:56 WBC 17.8 H (3.8-10.6) k/uL RBC 5.67 (4.30-5.90) m/uL Hgb 14.1 (13.0-17.5) gm/dL Hct 45.2 (39.0-53.0) % Plt Count 356 (150-450) k/uL Comprehensive Metabolic Panel 04/29/23 Range/Units 19:56 Sodium 139 (137-145) mmol/L Potassium 4.4 (3.5-5.1) mmol/L Chloride 106 (98-107) mmol/L Carbon Dioxide 20 L (22-30) mmol/L BUN 20 (9-20) mg/dL Creatinine 0.84 (0.66-1.25) mg/dL Glucose 127 H (74-99) mg/dL Calcium 9.3 (8.4-10.2) mg/dL AST 20 (17-59) U/L ALT 14 (4-49) U/L Alkaline Phosphatase 84 (38-126) U/L Total Protein 7.0 (6.3-8.2) g/dL Albumin 4.2 (3.5-5.0) g/dL Current Medications Generic Name Dose Route Start Last Admin Trade Name Freq PRN Reason Stop Dose Admin Ceftriaxone Sodium 2 gm/ 50 mls @ 100 mls/hr 04/30/23 23:00 Sodium Chloride IVPB Q24H ROSANA Protocol Azithromycin 500 mg/ Sodium 250 mls @ 250 mls/hr 04/30/23 21:00 Chloride IVPB 05/02/23 21:59 DAILY@2100 [facility] Protocol Naloxone HCl 0.2 mg 04/30/23 00:41 Naloxone 0.4 Mg/Ml 1 Ml Vial IV Q2M PRN Opioid Reversal Ondansetron HCl 4 mg 04/30/23 00:41 Ondansetron 4 Mg/2 Ml Vial IVP Q8HR PRN Nausea And Vomiting Intake and Output 04/29/23 04/30/23 04/30/23 22:59 06:59 14:59 Other: Weight 154.221 kg 04/29/23 19:56 04/29/23 19:56
--- NOTE | 2023-04-30 13:31 | CA ---
Transthoracic Echo Report Name: Gregg Dunbar Age: 72 Gender: M : 1950 Exam Date: 04/30/2023 09:15 Exam Location: [facility] Ht (in): 69 Wt (lb): 340 Ordering Physician: Joesph Mcgee DO Attending/Referring Phys: [id number], [facility] [employer] Specialist Helen Fritz RDCS Procedure CPT: Indications: chf Cardiac Hx: Technical Quality: Technically difficult study Contrast 1: Total Dose (mL): Contrast 2: Total Dose (mL): MEASUREMENTS (Male / Female) Normal Values 2D ECHO LV Diastolic Diameter PLAX 5.0 cm 4.2 - 5.9 / 3.9 - 5.3 cm LV Systolic Diameter PLAX 3.3 cm IVS Diastolic Thickness 1.4 cm 0.6 - 1.0 / 0.6 - 0.9 cm LVPW Diastolic Thickness 1.3 cm 0.6 - 1.0 / 0.6 - 0.9 cm LV Relative Wall Thickness 0.6 RV Internal Dim ED PLAX 3.6 cm LA Systolic Diameter LX 3.8 cm 3.0 - 4.0 / 2.7 - 3.8 cm LV Diastolic Volume MOD BP 69.7 cm??? 67 - 155 / 56 - 104 cm??? LV Systolic Volume MOD BP 36.6 cm??? - 58 / 19 - 49 cm??? LV Ejection Fraction MOD BP 47.4 % >= 55 % LV Cardiac Index MOD BP 947.3 cm???/min???m??? LV Diastolic Volume MOD 4C 88.5 cm??? LV Systolic Volume MOD 4C 51.1 cm??? LV Ejection Fraction MOD 4C 42.3 % LV Cardiac Index MOD 4C 1072.8 cm???/min???m??? LV Diastolic Length 4C 8.1 cm LV Systolic Length 4C 7.0 cm LV Diastolic Volume MOD 2C 51.6 cm??? LV Systolic Volume MOD 2C 23.8 cm??? LV Ejection Fraction MOD 2C 53.9 % LV Cardiac Index MOD 2C 796.4 cm???/min???m??? LV Diastolic Length 2C 7.4 cm LV Systolic Length 2C 6.3 cm LA Volume 62.5 cm??? 18 - 58 / 22 - 52 cm??? LA Volume Index 22.1 cm???/m??? 16 - 28 cm???/m??? M-MODE Aortic Root Diameter MM 4.1 cm MV E Point Septal Separation 2.1 cm AV Cusp Separation MM 2.1 cm DOPPLER AV Peak Velocity 128.4 cm/s AV Peak Gradient 6.6 mmHg MV Area PHT 3.5 cm??? Mitral E Point Velocity 56.4 cm/s Mitral A Point Velocity 80.0 cm/s Mitral E to A Ratio 0.7 MV Deceleration Time 216.7 ms MV E' Velocity 5.4 cm/s Mitral E to MV E' Ratio 10.5 TR Peak Velocity 287.1 cm/s TR Peak Gradient 33.0 mmHg Right Ventricular Systolic Press 38.0 mmHg FINDINGS Left Ventricle Left ventricular ejection fraction is estimated at 40-45 %. Left ventricular cavity size normal. Moderate concentric left ventricular hypertrophy. Right Ventricle Mild right ventricular dilatation. Mild pulmonary hypertension. Right Atrium Normal right atrial size. Left Atrium Normal left atrial size. Mitral Valve Structurally normal mitral valve. No mitral stenosis, regurgitation or prolapse. Aortic Valve Aortic valve not well visualized. No aortic valve stenosis or regurgitation. Tricuspid Valve Structurally normal tricuspid valve. Mild tricuspid regurgitation. Pulmonic Valve Structurally normal pulmonic valve. No pulmonic regurgitation. Pericardium No pericardial effusion. Aorta Moderate aortic dilatation at the level of the sinuses of valsalva 41 mm CONCLUSIONS LVH with reduced systolic function, 40% Previewed by: Dr. Femi Doshi MD (Electronically Signed) Final Date: 30 April 2023 13:30
[2023-04-30] MEDS ORDERED: DEXTROSE 50% SYRINGE 50 ML IVP PRN ×2 (14:31)
--- NOTE | 2023-04-30 14:33 | P.HPIM ---
History of Present Illness H&P Date: 04/30/23 Chief Complaint: Worsening shortness of breath This is a 72-year-old gentleman with past medical history significant for fibromyalgia gastroesophageal reflux disease,DDD, OA, former nicotine dependence and multiple other medical issues presented to the ER with worsening shortness of breath over the last month, accompanied by increased lower extremity edema. Reports orthopnea. He denies chest pain or palpitations Vague historian, on chest x-ray reported low lung volumes with generalized hazy appearance representing atelectasis versus pulmonary edema. ProBNP wnl,103. Troponins negative 3. EKG not scanned yet. Echo pending. Received IV push Lasix, empiric IV antibiotics. Maintaining O2 sats in the mid to lower 90s on 2 L nasal cannula.Afebrile, WBC 17.8, hemoglobin 14.1, platelets 356, INR 1, electrolyte within normal limits, bicarb 20, BUN 20, creatinine 0.84, glucose 127. Review of Systems ROS Statement: Those systems with pertinent positive or pertinent negative responses have been documented in the HPI. ROS Other: All systems not noted in ROS Statement are negative. Past Medical History Past Medical History: Eye Disorder, Fibromyalgia, GERD/Reflux, Musculoskeletal Disorder, Osteoarthritis (OA) Additional Past Medical History / Comment(s): Neuropathy; pinched nerve, LT CATARACT History of Any Multi-Drug Resistant Organisms: MRSA Date of last positivie culture/infection: 2015 MDRO Source:: L Elbow Past Surgical History: Cholecystectomy, Hernia Repair, Orthopedic Surgery, Tonsillectomy Additional Past Surgical History / Comment(s): Hernia repair x5; R & L knee arthroscopy; R foot reconstruction; R wrist FX X2;Vasectomy; Rhinoplasty X2, RT CATARACT REMOVED 08/20/17 Past Anesthesia/Blood Transfusion Reactions: No Reported Reaction Past Psychological History: No Psychological Hx Reported Past Alcohol Use History: Rare Past Drug Use History: None Reported - Past Family History Mother Family Medical History: Cancer Additional Family Medical History / Comment(s): Breast CA Medications and Allergies Home Medications Medication Instructions Recorded Confirmed Type RABEprazole SODIUM 20 mg PO DAILY 08/12/17 04/30/23 History Dapagliflozin Propanediol [Farxiga] 5 mg PO DAILY 04/30/23 04/30/23 History Doxycycline [Vibramycin] 100 mg PO BID 04/30/23 04/30/23 History Dulaglutide [Trulicity] 1.5 mg SQ SA 04/30/23 04/30/23 History Fluticasone Propion/Salmeterol 2 puff INHALATION RT-BID 04/30/23 04/30/23 History [Fluticasone-Salmeterol 45-21] Furosemide [Lasix] 20 mg PO DAILY 04/30/23 04/30/23 History Melatonin 3 mg PO HS 04/30/23 04/30/23 History Montelukast [Singulair] 10 mg PO DAILY 04/30/23 04/30/23 History Tamsulosin HCl [Flomax] 0.4 mg PO DAILY 04/30/23 04/30/23 History Testosterone Cypionate 200 mg IM Q14D 04/30/23 04/30/23 History [Depo-Testosterone] allopurinoL 100 mg PO DAILY 04/30/23 04/30/23 History hydrOXYzine pamoate [Vistaril] 25 mg PO BID PRN 04/30/23 04/30/23 History methylPREDNISolone [Medrol Dose See Taper PO DIRECTED 04/30/23 04/30/23 History Pack] Allergies Allergy/AdvReac Type Severity Reaction Status Date / Time morphine Allergy Rash/Hives Verified 04/30/23 07:09 Physical Exam Vitals: Vital Signs Pulse Resp BP Pulse Ox 04/30/23 05:00 70 94 L 04/30/23 03:00 79 142/80 94 L 04/30/23 02:00 101 H 20 129/93 92 L 04/30/23 01:00 69 18 146/89 95 04/30/23 00:10 71 18 146/89 95 04/30/23 00:00 70 18 127/67 86 L 04/29/23 19:33 79 22 137/83 98 Intake and Output 04/29/23 04/30/23 04/30/23 22:59 06:59 14:59 Other: Weight 154.221 kg PHYSICAL EXAM: VITAL SIGNS: [As above] GENERAL: Sitting up in chair, no acute distress HEENT: Normocephalic, Conjunctivae normal. eyes normal. NECK: Supple, No JVD. No thyroid enlargement. No LNs CARDIOVASCULAR: S1, S2 regular.. No murmur RESPIRATION: Unlabored Breath sounds diminished in the bases. No rhonchi or crackles. No bronchial breathing. ABDOMEN: Soft, obese, nontender . No guarding. no masses palpable. No ascites, No hepatosplenomegaly.Bowel sounds heard. LEGS: Positive pitting edema PSYCHIATRY: Alert and oriented X3, mood and affect normal. NERVOUS SYSTEM: Cranial N 2-12 grossly normal. No focal deficits. Strength and sensation grossly intact.. Skin: Warm and dry, no rash Results CBC & Chem 7: 04/29/23 19:56 04/29/23 19:56 Labs: Abnormal Lab Results - Last 24 Hours (Table) 04/29/23 04/29/23 Range/Units 19:56 19:56 WBC 17.8 H (3.8-10.6) k/uL MCV 79.6 L (80.0-100.0) fL MCH 24.8 L (25.0-35.0) pg RDW 19.7 H (11.5-15.5) % Neutrophils # 14.3 H (1.3-7.7) k/uL Carbon Dioxide 20 L (22-30) mmol/L Glucose 127 H (74-99) mg/dL Assessment and Plan Assessment: Shortness of breath with lower extremity edema,ProBNP within normal limits , echo pending. Possible acute changes required pneumonia, pro-calcitonin pending. Leukocytosis, suspect reactive. Hypertension Diabetes mellitus Gastroesophageal reflux disease DDD Fibromyalgia Morbid obesity BMI 50 Plan: Continue on current medication regime ,monitoring and symptomatic treatment. Echo, EKG ,procalcitonin pending. If pro-calcitonin within normal limits, will discontinue antibiotics. The impression and plan of care has been dictated as directed. : I performed a history and examination of this patient, discussed the same with the dictator. I agree with the dictator's note ,documented as a scribe. Any additional findings or plans will be noted.
[2023-04-30 15:34] LABS: Chol/HDL Ratio 3.05 Ratio; LDL Cholesterol,Calculated 52.1 mg/dL (0.0-131.0)
[2023-04-30] MEDS: PANTOPRAZOLE 40 MG/10 ML VIAL IVP SCH (15:38)
[2023-04-30] MEDS: INSULIN ASPART (NovoLOG) 100 UNIT/ML VIAL SQ SCH ×2 (18:37→22:09)
[2023-04-30] MEDS ORDERED: AZITHROMYCIN 500 MG in SODIUM CHLORIDE 0.9% 250 ML IVPB SCH (21:00)
[2023-04-30 22:06] LABS: Glucose,Whole Blood 123 mg/dL (70-110)
[2023-04-30] MEDS ORDERED: ALPRAZolam 0.25 MG TAB PO PRN (23:03)
[2023-05-01] MEDS: MELATONIN 3 MG TABLET PO SCH ×2 (03:54→21:26)
[2023-05-01 05:40] LABS: Glucose,Whole Blood 112 mg/dL (70-110)
[2023-05-01] MEDS: INSULIN ASPART (NovoLOG) 100 UNIT/ML VIAL SQ SCH ×4 (06:02→21:23)
[2023-05-01] MEDS: METOPROLOL SUCCINATE (ER) 25 MG TAB.ER.24H PO SCH (09:21)
[2023-05-01] MEDS: TAMSULOSIN 0.4 MG CAP.ER.24H PO SCH (09:21)
[2023-05-01] MEDS: allopurinoL 100 MG TAB PO SCH (09:21)
[2023-05-01] MEDS: FUROSEMIDE 40 MG TAB PO SCH (09:21)
[2023-05-01] MEDS: PANTOPRAZOLE 40 MG TABLET PO SCH (09:21)
[2023-05-01] MEDS: MONTELUKAST 10 MG TAB PO SCH (09:21)
[2023-05-01] MEDS: PANTOPRAZOLE 40 MG/10 ML VIAL IVP SCH (09:21)
[2023-05-01 09:31] LABS: Anisocytosis Slight; Basophils # (A) 0.1 k/uL (0-0.2); Basophils % (A) 0 %; Eosinophils # (A) 0.1 k/uL (0-0.7); Eosinophils % (A) 0 %; HCT 46.9 % (39.0-53.0); HGB 14.5 gm/dL (13.0-17.5); Hypochromasia Marked; Lymphocytes # (A) 1.9 k/uL (1.0-4.8); Lymphocytes % (A) 13 %; MCH 24.7 pg (25.0-35.0); MCV 79.8 fL (80.0-100.0); Mean Platelet Volume 7.2; Microcytosis Slight; Monocytes # (A) 0.9 k/uL (0-1.0); Monocytes % (A) 6 %; Neutrophils # (A) 11.6 k/uL (1.3-7.7); Neutrophils % (A) 80 %; Platelet Count 344 k/uL (150-450); RBC 5.88 m/uL (4.30-5.90); RDW 19.2 % (11.5-15.5); WBC 14.6 k/uL (3.8-10.6)
[2023-05-01 09:45] LABS: ALT 17 U/L (4-49); AST 24 U/L (17-59); African American GFR (CKD) >90 (>60 ml/min/1.73 sqM); Albumin 4.1 g/dL (3.5-5.0); Albumin/Globulin Ratio 1.3; Alkaline Phosphatase 98 U/L (38-126); Anion Gap 11 mmol/L; Blood Urea Nitrogen 20 mg/dL (9-20); Calcium 9.6 mg/dL (8.4-10.2); Carbon Dioxide 24 mmol/L (22-30); Chloride 101 mmol/L (98-107); Globulin 3.1 g/dL; Glucose 132 mg/dL (74-99); Lipase 88 U/L (23-300); Magnesium 1.9 mg/dL (1.6-2.3); Non-African American GFR(CKD) 80 (>60 ml/min/1.73 sqM); Phosphorus 3.8 mg/dL (2.5-4.5); Potassium 3.6 mmol/L (3.5-5.1); Sodium 136 mmol/L (137-145); Total Bilirubin 0.7 mg/dL (0.2-1.3); Total Protein 7.2 g/dL (6.3-8.2)
--- NOTE | 2023-05-01 09:57 | P.PN ---
Subjective HISTORY OF PRESENT ILLNESS: This is a 72-year-old male with a past medical history significant for diabetes, fibromyalgia, and GERD. 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 We have been asked to see the patient in consultation for congestive heart failure. Patient examined at the bedside in the emergency room. Patient presented to the hospital with a chief complaint of shortness of breath and increased lower extremity edema. Patient states he has had edema in his lower extremities since 2011. However he reports it has gotten worse over the past 4 weeks. He denies a previous history of congestive heart failure. The patient was given a one- time dose of IV Lasix in the emergency room. He reports improvement in his lower summary edema. He currently denies any shortness of breath. He denies any chest pain or pressure. Vital signs are stable. Patient's blood pressure running on the higher side with a systolic in the 140s. The patient denies a history of hypertension. * EKG: Not available at the time of this dictation * Chest xray low lung volumes with generalized hazy appearance which could are present atelectasis versus pulmonary edema. COPD changes. * Current home cardiac medications include Lasix 20 mg daily 05/01/2023 Patient examined this morning at the bedside. Patient denies any chest pain or pressure. He continues to report shortness of breath. Echocardiogram completed revealing ejection fraction 40-45 % with LVH and mild tricuspid regurgitation. PHYSICAL EXAM: VITAL SIGNS: Reviewed. GENERAL: Well-developed in no acute distress. HEENT: Head is normocephalic. Pupils are equal, round. Sclerae anicteric. Mucous membranes of the mouth are moist. Neck supple. No JVD or thyromegaly LUNGS: Respirations even and unlabored. Lungs essentially clear to auscultation bilaterally, diminished. HEART: Regular rate and rhythm. S1 and S2 heard. ABDOMEN: Soft. Nondistended. Nontender. EXTREMITIES: Normal range of motion. No clubbing or cyanosis. Peripheral pulses intact. 1-2+ bilateral lower extremity edema NEUROLOGIC: Awake and alert. Oriented x 3. ASSESSMENT: Shortness of breath Acute on chronic lower extremity edema, proBNP within normal limits at 103 New-onset cream myopathy, ejection fraction 4045%, ischemic versus nonischemic Possible pneumonia Leukocytosis Elevated blood pressure, suspect hypertension Diabetes Fibromyalgia GERD PLAN: Continue current cardiac medications Change losartan to HS dosing Add metoprolol succinate 25 mg in the morning Continue current dose of oral Lasix 40 mg daily Patient will need eventual workup of cardiomyopathy when he is medically stable Further recommendations pending patient's course Nurse practitioner note has been reviewed by physician. Signing provider agrees with the documented findings, assessment, and plan of care. Objective - Vital Signs Vital signs: Vital Signs Temp 97.7 F 05/01/23 07:04 Pulse 91 05/01/23 07:04 Resp 19 05/01/23 07:04 BP 114/81 05/01/23 07:04 Pulse Ox 92 L 05/01/23 07:04 FiO2 Intake & Output 04/30/23 05/01/23 05/01/23 18:59 06:59 18:59 Weight 154.221 kg Other: # Voids 0 - Labs CBC & Chem 7: 05/01/23 08:00 05/01/23 08:00 Labs: Abnormal Lab Results - Last 24 Hours (Table) 04/30/23 04/30/23 04/30/23 Range/Units 09:16 09:16 22:05 WBC (3.8-10.6) k/uL MCV (80.0-100.0) fL MCH (25.0-35.0) pg RDW (11.5-15.5) % Neutrophils # (1.3-7.7) k/uL Sodium (137-145) mmol/L Glucose (74-99) mg/dL POC Glucose (mg/dL) 123 H (70-110) mg/dL Hemoglobin A1c 6.3 H (<=6.0) % Triglycerides 156.00 H (0.00-149.00) mg/dL 05/01/23 05/01/23 05/01/23 Range/Units 05:39 08:00 08:00 WBC 14.6 H (3.8-10.6) k/uL MCV 79.8 L (80.0-100.0) fL MCH 24.7 L (25.0-35.0) pg RDW 19.2 H (11.5-15.5) % Neutrophils # 11.6 H (1.3-7.7) k/uL Sodium 136 L (137-145) mmol/L Glucose 132 H (74-99) mg/dL POC Glucose (mg/dL) 112 H (70-110) mg/dL Hemoglobin A1c (<=6.0) % Triglycerides (0.00-149.00) mg/dL
[2023-05-01 11:14] LABS: Glucose,Whole Blood 130 mg/dL (70-110)
--- NOTE | 2023-05-01 13:40 | P.PN ---
Subjective Progress Note Date: 05/01/23 Chief Complaint: Worsening shortness of breath This is a 72-year-old gentleman with past medical history significant for fibromyalgia gastroesophageal reflux disease,DDD, OA, former nicotine dependence and multiple other medical issues presented to the ER with worsening shortness of breath over the last month, accompanied by increased lower extremity edema. Reports orthopnea. He denies chest pain or palpitations Vague historian, on chest x-ray reported low lung volumes with generalized hazy appearance representing atelectasis versus pulmonary edema. ProBNP wnl,103. Troponins negative 3. EKG not scanned yet. Echo pending. Received IV push Lasix, empiric IV antibiotics. Maintaining O2 sats in the mid to lower 90s on 2 L nasal cannula.Afebrile, WBC 17.8, hemoglobin 14.1, platelets 356, INR 1, electrolyte within normal limits, bicarb 20, BUN 20, creatinine 0.84, glucose 127. 05/01/2023 Echo reporting LVH, EF 40% with mild pulmonary hypertension. Normal calcitonin, antibiotics were discontinued. Afebrile, WBC trending down 14.6. Normal proBNP. Patient reports he is unable to take spironolactone due to a drug reaction-but does not recall specifically what reaction occurred. Denies chest pain, palpitations or shortness of breath. Continues on oral Lasix, maintaining O2 sats in the low 90s on room air, mildly decreasing edema. Objective - Vital Signs Vital signs: Vital Signs Temp 97.7 F 05/01/23 07:04 Pulse 91 05/01/23 07:04 Resp 19 05/01/23 07:04 BP 114/81 05/01/23 07:04 Pulse Ox 92 L 05/01/23 07:04 FiO2 Intake & Output 04/30/23 05/01/23 05/01/23 18:59 06:59 18:59 Weight 154.221 kg Other: # Voids 0 - Exam PHYSICAL EXAM: VITAL SIGNS: [As above] GENERAL: Alert and oriented 3, Sitting up in chair, no acute distress HEENT: Normocephalic, Conjunctivae normal. eyes normal. NECK: Supple, No JVD. CARDIOVASCULAR: S1, S2 regular. No murmur RESPIRATION: Unlabored Breath sounds diminished in the bases. ABDOMEN: Soft, obese, nontender . No guarding. no masses palpable.+BS. LEGS: Positive pitting edema. NERVOUS SYSTEM: Cranial N 2-12 grossly normal. No focal deficits. Strength and sensation grossly intact. Skin: Warm and dry, no rash - Labs CBC & Chem 7: 05/01/23 08:00 05/01/23 08:00 Labs: Abnormal Lab Results - Last 24 Hours (Table) 04/30/23 04/30/23 04/30/23 Range/Units 09:16 09:16 22:05 WBC (3.8-10.6) k/uL MCV (80.0-100.0) fL MCH (25.0-35.0) pg RDW (11.5-15.5) % Neutrophils # (1.3-7.7) k/uL Sodium (137-145) mmol/L Glucose (74-99) mg/dL POC Glucose (mg/dL) 123 H (70-110) mg/dL Hemoglobin A1c 6.3 H (<=6.0) % Triglycerides 156.00 H (0.00-149.00) mg/dL 05/01/23 05/01/23 05/01/23 Range/Units 05:39 08:00 08:00 WBC 14.6 H (3.8-10.6) k/uL MCV 79.8 L (80.0-100.0) fL MCH 24.7 L (25.0-35.0) pg RDW 19.2 H (11.5-15.5) % Neutrophils # 11.6 H (1.3-7.7) k/uL Sodium 136 L (137-145) mmol/L Glucose 132 H (74-99) mg/dL POC Glucose (mg/dL) 112 H (70-110) mg/dL Hemoglobin A1c (<=6.0) % Triglycerides (0.00-149.00) mg/dL 05/01/23 Range/Units 11:12 WBC (3.8-10.6) k/uL MCV (80.0-100.0) fL MCH (25.0-35.0) pg RDW (11.5-15.5) % Neutrophils # (1.3-7.7) k/uL Sodium (137-145) mmol/L Glucose (74-99) mg/dL POC Glucose (mg/dL) 130 H (70-110) mg/dL Hemoglobin A1c (<=6.0) % Triglycerides (0.00-149.00) mg/dL Microbiology - Last 24 Hours (Table) 04/30/23 00:56 Blood Culture - Preliminary Blood Assessment and Plan Assessment: Shortness of breath with lower extremity edema,ProBNP within normal limits , Echo reporting new onset cardiomyopathy, EF 40-45%, type unclear Possible acute community-acquired pneumonia, ruled out -pro-calcitonin normal. Leukocytosis, suspect reactive, trending down. Hypertension Diabetes mellitus Gastroesophageal reflux disease DDD Fibromyalgia Morbid obesity BMI 50 Anxiety Plan: Continue on current medication regime ,monitoring and symptomatic treatment. Continues on oral diuretics, beta vivi added on to med. regimen as per cardiology with eventual cardiomyopathy workup recommended. Buspar ordered for anxiety. The impression and plan of care has been dictated as directed. : I performed a history and examination of this patient, discussed the same with the dictator. I agree with the dictator's note ,documented as a scribe. Any additional findings or plans will be noted.
[2023-05-01] MEDS: busPIRone HCl 5 MG TAB PO SCH ×2 (14:49→21:26)
[2023-05-01 16:32] LABS: Glucose,Whole Blood 122 mg/dL (70-110)
[2023-05-01 19:09] LABS: Glucose,Whole Blood 135 mg/dL (70-110)
[2023-05-01] MEDS: LOSARTAN 25 MG TAB PO SCH (21:26)
[2023-05-02] MEDS: INSULIN ASPART (NovoLOG) 100 UNIT/ML VIAL SQ SCH ×4 (06:28→21:47)
[2023-05-02] MEDS: PANTOPRAZOLE 40 MG/10 ML VIAL IVP SCH ×2 (08:35→08:37)
[2023-05-02] MEDS: MONTELUKAST 10 MG TAB PO SCH (08:36)
[2023-05-02] MEDS: allopurinoL 100 MG TAB PO SCH (08:36)
[2023-05-02] MEDS: TAMSULOSIN 0.4 MG CAP.ER.24H PO SCH (08:36)
[2023-05-02] MEDS: METOPROLOL SUCCINATE (ER) 25 MG TAB.ER.24H PO SCH (08:36)
[2023-05-02] MEDS: busPIRone HCl 5 MG TAB PO SCH ×2 (08:36→21:56)
[2023-05-02] MEDS: FUROSEMIDE 40 MG TAB PO SCH (08:36)
[2023-05-02] MEDS: PANTOPRAZOLE 40 MG TABLET PO SCH (08:36)
[2023-05-02] MEDS ORDERED: NITROGLYCERIN SL TABS 0.4 MG TAB SUBLINGUAL PRN (09:51)
[2023-05-02] MEDS ORDERED: ALPRAZolam 0.25 MG TAB PO PRN (09:51)
[2023-05-02] MEDS: ACETAMINOPHEN TAB 325 MG TAB PO PRN ×2 (11:43→20:13)
[2023-05-02 11:48] LABS: Glucose,Whole Blood 103 mg/dL (70-110)
--- NOTE | 2023-05-02 11:50 | P.PN ---
Subjective HISTORY OF PRESENT ILLNESS: This is a 72-year-old male with a past medical history significant for diabetes, fibromyalgia, and GERD. 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 We have been asked to see the patient in consultation for congestive heart failure. Patient examined at the bedside in the emergency room. Patient presented to the hospital with a chief complaint of shortness of breath and increased lower extremity edema. Patient states he has had edema in his lower extremities since 2011. However he reports it has gotten worse over the past 4 weeks. He denies a previous history of congestive heart failure. The patient was given a one- time dose of IV Lasix in the emergency room. He reports improvement in his lower summary edema. He currently denies any shortness of breath. He denies any chest pain or pressure. Vital signs are stable. Patient's blood pressure running on the higher side with a systolic in the 140s. The patient denies a history of hypertension. * EKG: Not available at the time of this dictation * Chest xray low lung volumes with generalized hazy appearance which could are present atelectasis versus pulmonary edema. COPD changes. * Current home cardiac medications include Lasix 20 mg daily 05/01/2023 Patient examined this morning at the bedside. Patient denies any chest pain or pressure. He continues to report shortness of breath. Echocardiogram completed revealing ejection fraction 40-45 % with LVH and mild tricuspid regurgitation. 05/02/2023 Patient examined this morning at the bedside. Patient is laying flat in bed and appears comfortable. He denies any chest pain or pressure. He currently denies any shortness of breath. Vital signs are stable. PHYSICAL EXAM: VITAL SIGNS: Reviewed. GENERAL: Well-developed in no acute distress. HEENT: Head is normocephalic. Pupils are equal, round. Sclerae anicteric. Mucous membranes of the mouth are moist. Neck supple. No JVD or thyromegaly LUNGS: Respirations even and unlabored. Lungs essentially clear to auscultation bilaterally, diminished. HEART: Regular rate and rhythm. S1 and S2 heard. ABDOMEN: Soft. Nondistended. Nontender. EXTREMITIES: Normal range of motion. No clubbing or cyanosis. Peripheral pulses intact. 1+ bilateral lower extremity edema NEUROLOGIC: Awake and alert. Oriented x 3. ASSESSMENT: Shortness of breath Acute on chronic lower extremity edema, proBNP within normal limits at 103 New-onset cardiomyopathy, ejection fraction 4045%, ischemic versus nonischemic Possible pneumonia Leukocytosis Elevated blood pressure, suspect hypertension Diabetes Fibromyalgia GERD PLAN: Continue current cardiac medications NPO at midnight Patient to undergo cardiac catheterization tomorrow with Dr. Combs Further recommendations pending patient's course Nurse practitioner note has been reviewed by physician. Signing provider agrees with the documented findings, assessment, and plan of care. Objective - Vital Signs Vital signs: Vital Signs Temp 98.7 F 05/02/23 07:11 Pulse 86 05/02/23 07:11 Resp 18 05/02/23 07:11 BP 103/75 05/02/23 07:11 Pulse Ox 94 L 05/02/23 07:11 FiO2 Intake & Output 05/01/23 05/02/23 05/02/23 18:59 06:59 18:59 Weight 143.5 kg Other: # Voids 2 3 - Labs CBC & Chem 7: 05/01/23 08:00 05/01/23 08:00 Labs: Abnormal Lab Results - Last 24 Hours (Table) 05/01/23 05/01/23 Range/Units 16:30 19:07 POC Glucose (mg/dL) 122 H 135 H (70-110) mg/dL Microbiology - Last 24 Hours (Table) 04/30/23 00:56 Blood Culture - Preliminary Blood
--- NOTE | 2023-05-02 15:58 | P.PN ---
Subjective Progress Note Date: 05/02/23 Chief Complaint: Worsening shortness of breath This is a 72-year-old gentleman with past medical history significant for fibromyalgia gastroesophageal reflux disease,DDD, OA, former nicotine dependence and multiple other medical issues presented to the ER with worsening shortness of breath over the last month, accompanied by increased lower extremity edema. Reports orthopnea. He denies chest pain or palpitations Vague historian, on chest x-ray reported low lung volumes with generalized hazy appearance representing atelectasis versus pulmonary edema. ProBNP wnl,103. Troponins negative 3. EKG not scanned yet. Echo pending. Received IV push Lasix, empiric IV antibiotics. Maintaining O2 sats in the mid to lower 90s on 2 L nasal cannula.Afebrile, WBC 17.8, hemoglobin 14.1, platelets 356, INR 1, electrolyte within normal limits, bicarb 20, BUN 20, creatinine 0.84, glucose 127. 05/01/2023 Echo reporting LVH, EF 40% with mild pulmonary hypertension. Normal calcitonin, antibiotics were discontinued. Afebrile, WBC trending down 14.6. Normal proBNP. Patient reports he is unable to take spironolactone due to a drug reaction-but does not recall specifically what reaction occurred. Denies chest pain, palpitations or shortness of breath. Continues on oral Lasix, maintaining O2 sats in the low 90s on room air, mildly decreasing edema. 05/02/2023 breathing significantly improved, laying flat in bed. Denies chest pain, palpitations or shortness of breath. Maintaining O2 sats in the 90s on room air. Evaluated by cardiology and scheduled for cardiac catheterization tomorrow. Objective - Vital Signs Vital signs: Vital Signs Temp 98.2 F 05/02/23 14:52 Pulse 75 05/02/23 14:52 Resp 19 05/02/23 14:52 BP 94/58 05/02/23 14:52 Pulse Ox 93 L 05/02/23 14:52 FiO2 Intake & Output 05/01/23 05/02/23 05/02/23 18:59 06:59 18:59 Weight 143.5 kg Other: # Voids 2 3 - Exam PHYSICAL EXAM: VITAL SIGNS: [As above] GENERAL: Alert and oriented 3, Sitting up at bedside, no acute distress HEENT: Normocephalic, Conjunctivae normal. eyes normal. NECK: Supple, No JVD. CARDIOVASCULAR: S1, S2 regular. No murmur RESPIRATION: Unlabored, equal air entry, CTA. ABDOMEN: Soft, obese, nontender . No guarding. no masses palpable.+BS. LEGS: Trace edema. NERVOUS SYSTEM: Cranial N 2-12 grossly normal. No focal deficits. Strength and sensation grossly intact. Skin: Warm and dry, no rash - Labs CBC & Chem 7: 05/01/23 08:00 05/01/23 08:00 Labs: Abnormal Lab Results - Last 24 Hours (Table) 05/01/23 05/01/23 Range/Units 16:30 19:07 POC Glucose (mg/dL) 122 H 135 H (70-110) mg/dL Microbiology - Last 24 Hours (Table) 04/30/23 00:56 Blood Culture - Preliminary Blood Assessment and Plan Assessment: Shortness of breath with lower extremity edema,ProBNP within normal limits , Echo reporting new onset cardiomyopathy, EF 40-45%, type unclear Possible acute community-acquired pneumonia, ruled out -pro-calcitonin normal. Leukocytosis, suspect reactive, trending down. Hypertension Diabetes mellitus Gastroesophageal reflux disease DDD Fibromyalgia Morbid obesity BMI 50 Anxiety Plan: Continue on current medication regime ,monitoring and symptomatic matt tment. Cardiac catheterization tomorrow as per cardiology. Discharge planning in progress. The impression and plan of care has been dictated as directed. : I performed a history and examination of this patient, discussed the same with the dictator. I agree with the dictator's note ,documented as a scribe. Any additional findings or plans will be noted.
[2023-05-02] MEDS ORDERED: diphenhydrAMINE 2% CREAM 28.4 GM TUBE TOPICAL PRN (18:17)
[2023-05-02] MEDS: MELATONIN 3 MG TABLET PO SCH (21:56)
[2023-05-02] MEDS: LOSARTAN 25 MG TAB PO SCH (21:56)
[2023-05-02] MEDS: ATORVASTATIN 20 MG TAB PO SCH (21:56)
[2023-05-02] MEDS: ALPRAZolam 0.5 MG TAB PO PRN (21:56)
[2023-05-02] MEDS: SODIUM CHLORIDE 0.9% 1,000 ML in EMPTY BAG 1 BAG IV SCH (21:57)
[2023-05-03] MEDS: ACETAMINOPHEN TAB 325 MG TAB PO PRN ×2 (02:45→21:34)
[2023-05-03] MEDS ORDERED: ASPIRIN 325 MG TAB PO ONE (05:00)
[2023-05-03] MEDS ORDERED: ATORVASTATIN 80 MG TAB PO ONE (05:00)
[2023-05-03] MEDS: SODIUM CHLORIDE 0.9% 1,000 ML in EMPTY BAG 1 BAG IV SCH ×3 (05:40→20:48)
[2023-05-03 05:47] LABS: Glucose,Whole Blood 101 mg/dL (70-110)
[2023-05-03] MEDS: INSULIN ASPART (NovoLOG) 100 UNIT/ML VIAL SQ SCH ×3 (05:53→17:53)
[2023-05-03] MEDS ORDERED: HEPARIN SODIUM,PORCINE 10,000 UNIT in SODIUM CHLORIDE 0.9% 1,000 ML IRRIGATION PRN (07:00)
[2023-05-03] MEDS ORDERED: HEPARIN SODIUM,PORCINE (1 ML) 2,500 UNIT in SODIUM CHLORIDE 0.9% 250 ML IRRIGATION PRN (07:00)
[2023-05-03] MEDS: busPIRone HCl 5 MG TAB PO SCH ×2 (07:53→21:34)
[2023-05-03] MEDS: MONTELUKAST 10 MG TAB PO SCH (07:53)
[2023-05-03] MEDS: PANTOPRAZOLE 40 MG TABLET PO SCH (07:53)
[2023-05-03] MEDS: METOPROLOL SUCCINATE (ER) 25 MG TAB.ER.24H PO SCH (07:53)
[2023-05-03] MEDS: ASPIRIN 81 MG PO SCH (07:53)
[2023-05-03] MEDS: allopurinoL 100 MG TAB PO SCH (07:53)
[2023-05-03] MEDS: PANTOPRAZOLE 40 MG/10 ML VIAL IVP SCH (07:53)
[2023-05-03] MEDS: FUROSEMIDE 40 MG TAB PO SCH (07:53)
[2023-05-03] MEDS: TAMSULOSIN 0.4 MG CAP.ER.24H PO SCH (07:53)
[2023-05-03 11:29] LABS: Basophils # (A) 0.07 X 10*3/uL (0.00-0.10); Basophils % (A) 0.6 %; Eosinophils # (A) 0.14 X 10*3/uL (0.04-0.35); Eosinophils % (A) 1.1 %; HCT 45.4 % (39.6-50.0); HGB 13.7 d/dL (13.0-17.0); Lymphocytes % (A) 21.7 %; MCH 23.8 pg (27.0-32.0); MCHC 30.2 d/dL (32.0-37.0); MCV 78.8 FL (80.0-97.0); Mean Platelet Volume 8.9 FL (9.5-12.2); Monocytes # (A) 0.87 X 10*3/uL (0.20-1.00); NRBC Per 100 WBC 0 X 10*3/uL (0.00-0.01); Neutrophils # (A) 8.62 X 10*3/uL (1.80-7.70); Neutrophils % (A) 69.1 %; Platelet Count 347 X 10*3/uL (140-440); RBC 5.76 X 10*6/uL (4.40-5.60); RDW 21.5 % (11.5-14.5); WBC 12.46 X 10*3/uL (4.50-10.00)
[2023-05-03 11:44] LABS: Blood Urea Nitrogen 14.3 mg/dL (9.0-27.0); Calcium 9.3 mg/dL (8.7-10.3); Carbon Dioxide 26.3 mmol/L (21.6-31.8); Chloride 100 mmol/L (96-109); Glucose 100 mg/dL (70-110); Potassium 3.8 mmol/L (3.5-5.5); Sodium 138 mmol/L (135-145)
[2023-05-03 11:58] LABS: Glucose,Whole Blood 115 mg/dL (70-110)
[2023-05-03] MEDS ORDERED: IV FLUID CONTINUATION 200 ML IV ONE (15:27)
[2023-05-03] MEDS ORDERED: fentaNYL (PF) 50 MCG/ML 2 ML AMP ONE (15:34)
[2023-05-03] MEDS ORDERED: MIDAZOLAM 2 MG/2 ML VIAL IVP ONE ×2 (15:52)
[2023-05-03] MEDS ORDERED: fentaNYL (PF) 50 MCG/1 ML VIAL IVP ONE (15:52)
[2023-05-03] MEDS ORDERED: VERAPAMIL SYRINGE (5 MG/10 ML) INTRAARTER ONE (16:07)
[2023-05-03] MEDS ORDERED: HEPARIN SODIUM 1,000 UN/ML (10ML VL) IV ONE (16:07)
[2023-05-03] MEDS ORDERED: LIDOCAINE 1% INJ 10MG/ML (30 ML VIAL-PF) SQ ONE (16:07)
[2023-05-03] MEDS ORDERED: IOPAMIDOL-370 100ML BTL INJ ONE (16:15)
[2023-05-03] MEDS ORDERED: RX INFO: IV CONTRAST WAS GIVEN 1 EACH MISC MISCELLANE PRN (16:19)
--- NOTE | 2023-05-03 16:19 | P.CARDCATH ---
Description of Procedure: PROCEDURES PERFORMED: Left heart catheterization, bilateral coronary angiography, ultrasound guided arterial access INDICATION: Cardiomyopathy CONSENT:I have discussed the risks, benefits and alternative therapies for the above-mentioned procedure and for both sedation/analgesia as well as necessary blood product administration, if indicated, as they pertain to this patient. The patient has indicated understanding and acceptance of the risks and procedures discussed. PROCEDURE: After the risks, benefits and alternatives of the above mentioned procedure explained in detail with the patient, informed consent was obtained. Patient was taken to the catheterization lab and prepped and draped in usual fashion. Ultrasound guidance was used to assess for arterial access. 1% lidocaine was used to anesthetize the right radial artery. A 6-Lao sheath was placed in the right radial artery using modified Seldinger technique and ultrasound guidance. Left coronary angiography was performed with a 5-Lao JL 3.5 catheter and right coronary angiography was performed with a 5-Lao JR5 catheter in various views. A 5-Lao FR5 catheter was inserted into the left ventricle and pressure measurements were obtained. The right radial sheath was removed and a TR band was placed with hemostasis achieved. The patient tolerate d the procedure well. Patient was transported back to the post catheterization holding area in stable condition. Conscious Sedation: Patient was monitored under the direct supervision of myself for conscious sedation using Versed and fentanyl for a total duration of [] minutes HEMODYNAMICS: Aorta: 112/66 LV: 107/5, LVEDP: 11 SELECTIVE CORONARY ARTERIOGRAPHY: LEFT MAIN: The left main is a large caliber vessel which bifurcates into the LAD and circumflex. There is no significant stenosis. LEFT ANTERIOR DESCENDING CORONARY ARTERY: LAD is a large caliber vessel which wraps around to the apex. There are mild luminal irregularities of the LAD including a 20% mid LAD stenosis. LEFT CIRCUMFLEX CORONARY ARTERY: Left circumflex is a moderate caliber vessel are mild luminal irregularities RIGHT CORONARY ARTERY: The right coronary artery is a large caliber vessel which gives off a PDA and PLV branch and is the dominant vessel. There are mild luminal irregularities FINAL IMPRESSION: 1. CAD as described above including mild luminal irregularities with 20% mid LAD stenosis 2. Normal left sided filling pressures PLAN: 1. Aggressive risk factor modification per most recent ACC/AHA guidelines. 2. Follow-up in the office in 1-2 weeks.
--- NOTE | 2023-05-03 19:48 | P.PN ---
Subjective Progress Note Date: 05/03/23 Chief Complaint: Worsening shortness of breath This is a 72-year-old gentleman with past medical history significant for fibromyalgia gastroesophageal reflux disease,DDD, OA, former nicotine dependence and multiple other medical issues presented to the ER with worsening shortness of breath over the last month, accompanied by increased lower extremity edema. Reports orthopnea. He denies chest pain or palpitations Vague historian, on chest x-ray reported low lung volumes with generalized hazy appearance representing atelectasis versus pulmonary edema. ProBNP wnl,103. Troponins negative 3. EKG not scanned yet. Echo pending. Received IV push Lasix, empiric IV antibiotics. Maintaining O2 sats in the mid to lower 90s on 2 L nasal cannula.Afebrile, WBC 17.8, hemoglobin 14.1, platelets 356, INR 1, electrolyte within normal limits, bicarb 20, BUN 20, creatinine 0.84, glucose 127. 05/01/2023 Echo reporting LVH, EF 40% with mild pulmonary hypertension. Normal calcitonin, antibiotics were discontinued. Afebrile, WBC trending down 14.6. Normal proBNP. Patient reports he is unable to take spironolactone due to a drug reaction-but does not recall specifically what reaction occurred. Denies chest pain, palpitations or shortness of breath. Continues on oral Lasix, maintaining O2 sats in the low 90s on room air, mildly decreasing edema. 05/02/2023 breathing significantly improved, laying flat in bed. Denies chest pain, palpitations or shortness of breath. Maintaining O2 sats in the 90s on room air. Evaluated by cardiology and scheduled for cardiac catheterization tomorrow. 05/03/2023 NPO, scheduled for cardiac catheterization this afternoon. Denies chest pain, palpitations or shortness of breath. Maintaining O2 sats in the mid 90s on room air. Objective - Vital Signs Vital signs: Vital Signs Temp 98.0 F 05/03/23 18:05 Pulse 86 05/03/23 18:05 Resp 18 05/03/23 18:05 BP 104/66 05/03/23 18:05 Pulse Ox 93 L 05/03/23 18:05 FiO2 Intake & Output 05/03/23 05/03/23 05/04/23 06:59 18:59 06:59 Intake Total 715 100 Balance 715 100 Weight 146 kg Intake: IV 100 Intake, IV Titration 715 Amount Sodium Chloride 0.9% 1, 715 000 ml In Empty Bag 1 bag @ 1 ML/KG/HR 143.5 mls/ hr IV .[id number] ROSANA Rx#: [id number] Other: # Voids 3 1 - Exam PHYSICAL EXAM: VITAL SIGNS: [As above] GENERAL: Alert and oriented 3, Sitting up in chair, no acute distress HEENT: Normocephalic, Conjunctivae normal. eyes normal. NECK: Supple, No JVD. CARDIOVASCULAR: S1, S2 regular. No murmur RESPIRATION: Unlabored, equal air entry, CTA. ABDOMEN: Soft, obese, nontender . No guarding. +BS. LEGS: Trace edema. NERVOUS SYSTEM: Cranial N 2-12 grossly normal. No focal deficits. Strength and sensation grossly intact. Skin: Warm and dry, no rash - Labs CBC & Chem 7: 05/03/23 06:54 05/03/23 06:54 Labs: Abnormal Lab Results - Last 24 Hours (Table) 05/03/23 05/03/23 Range/Units 06:54 11:56 WBC 12.46 H (4.50-10.00) X 10*3/uL RBC 5.76 H (4.40-5.60) X 10*6/uL MCV 78.8 L (80.0-97.0) FL MCH 23.8 L (27.0-32.0) pg MCHC 30.2 L (32.0-37.0) d/dL RDW 21.5 H (11.5-14.5) % MPV 8.9 L (9.5-12.2) FL Neutrophils # 8.62 H (1.80-7.70) X 10*3/uL POC Glucose (mg/dL) 115 H (70-110) mg/dL Microbiology - Last 24 Hours (Table) 04/30/23 00:56 Blood Culture - Preliminary Blood Assessment and Plan Assessment: Shortness of breath with lower extremity edema,ProBNP within normal limits , Echo reporting new onset cardiomyopathy, EF 40-45%, type unclear Possible acute community-acquired pneumonia, ruled out -pro-calcitonin normal. Leukocytosis, suspect reactive, trending down. Hypertension Diabetes mellitus Gastroesophageal reflux disease DDD Fibromyalgia Morbid obesity BMI 50 Anxiety Plan: Continue on current medication regime ,monitoring and symptomatic t reatment. Cardiac catheterization pending for this afternoon Discharge planning in progress tentatively for this afternoon pending cardiac catheterization results, final DC recommendations and clearance per cardiology. The impression and plan of care has been dictated as directed. : I performed a history and examination of this patient, discussed the same with the dictator. I agree with the dictator's note ,documented as a scribe. Any additional findings or plans will be noted.
[2023-05-03] MEDS: LOSARTAN 25 MG TAB PO SCH (21:34)
[2023-05-03] MEDS: ATORVASTATIN 20 MG TAB PO SCH (21:34)
[2023-05-03] MEDS: MELATONIN 3 MG TABLET PO SCH (21:34)
[2023-05-03] MEDS: ALPRAZolam 0.5 MG TAB PO PRN (22:44)
[2023-05-04] MEDS: SODIUM CHLORIDE 0.9% 1,000 ML in EMPTY BAG 1 BAG IV SCH (04:14)
[2023-05-04] MEDS: PANTOPRAZOLE 40 MG TABLET PO SCH (08:23)
[2023-05-04] MEDS: FUROSEMIDE 40 MG TAB PO SCH (08:23)
[2023-05-04] MEDS: ASPIRIN 81 MG PO SCH (08:23)
[2023-05-04] MEDS: allopurinoL 100 MG TAB PO SCH (08:23)
[2023-05-04] MEDS: MONTELUKAST 10 MG TAB PO SCH (08:23)
[2023-05-04] MEDS: TAMSULOSIN 0.4 MG CAP.ER.24H PO SCH (08:24)
[2023-05-04] MEDS: busPIRone HCl 5 MG TAB PO SCH (08:24)
[2023-05-04] MEDS: METOPROLOL SUCCINATE (ER) 25 MG TAB.ER.24H PO SCH (08:24)
[2023-05-04] MEDS: PANTOPRAZOLE 40 MG/10 ML VIAL IVP SCH (08:24)
[2023-05-04 08:41] VITALS: RESP 16; TEMP 97.5
[2023-05-04 12:02] VITALS: BP 94/57; PULSE 78
--- NOTE | 2023-05-04 19:45 | P.DS ---
Providers Date of admission: 04/30/23 00:41 Expected date of discharge: 05/04/23 Attending physician: James Prince MD Consults: 04/30/23 00:41 Consult Physician Routine Consulting Provider: Raghu Sotelo Consult Reason/Comments: chf? Do you want consulting provider notified?: Yes Primary care physician: [facility] Course: 72-year-old gentleman with past medical history significant for fibromyalgia gastroesophageal reflux disease,DDD, OA, former nicotine dependence and multiple other medical issues presented to the ER with worsening shortness of breath over the last month, accompanied by increased lower extremity edema. Reports orthopnea. He denies chest pain or palpitations Vague historian, on chest x-ray reported low lung volumes with generalized hazy appearance representing atelectasis versus pulmonary edema. ProBNP wnl,103. Troponins negative 3. EKG not scanned yet. Echo pending. Received IV push Lasix, empiric IV antibiotics. Maintaining O2 sats in the mid to lower 90s on 2 L nasal cannula.Afebrile, WBC 17.8, hemoglobin 14.1, platelets 356, INR 1, electrolyte within normal limits, bicarb 20, BUN 20, creatinine 0.84, glucose 127. 05/01/2023 Echo reporting LVH, EF 40% with mild pulmonary hypertension. Normal calcitonin, antibiotics were discontinued. Afebrile, WBC trending down 14.6. Normal proBNP. Patient reports he is unable to take spironolactone due to a drug reaction-but does not recall specifically what reaction occurred. Denies chest pain, palpitations or shortness of breath. Continues on oral Lasix, maintaining O2 sats in the low 90s on room air, mildly decreasing edema. 05/02/2023 breathing significantly improved, laying flat in bed. Denies chest pain, palpitations or shortness of breath. Maintaining O2 sats in the 90s on room air. Evaluated by cardiology and scheduled for cardiac catheterization tomorrow. 05/03/2023 NPO, scheduled for cardiac catheterization this afternoon. Denies chest pain, palpitations or shortness of breath. Maintaining O2 sats in the mid 90s on room air. SELECTIVE CORONARY ARTERIOGRAPHY: LEFT MAIN: The left main is a large caliber vessel which bifurcates into the LAD and circumflex. There is no significant stenosis. LEFT ANTERIOR DESCENDING CORONARY ARTERY: LAD is a large caliber vessel which wraps around to the apex. There are mild luminal irregularities of the LAD including a 20% mid LAD stenosis. LEFT CIRCUMFLEX CORONARY ARTERY: Left circumflex is a moderate caliber vessel are mild luminal irregularities RIGHT CORONARY ARTERY: The right coronary artery is a large caliber vessel which gives off a PDA and PLV branch and is the dominant vessel. There are mild luminal irregularities FINAL IMPRESSION: 1. CAD as described above including mild luminal irregularities with 20% mid LAD stenosis 2. Normal left sided filling pressures PLAN: 1. Aggressive risk factor modification per most recent ACC/AHA guidelines. 2. Follow-up in the office in 1-2 weeks. Be discharged home in stable condition on 05/04/2023 Patient Condition at Discharge: Serious Plan - Discharge Summary Discharge Rx Participant: No New Discharge Prescriptions: New Losartan [Cozaar] 25 mg PO HS 30 Days #30 tab Aspirin 81 mg PO DAILY tab busPIRone HCl [Buspar] 5 mg PO BID 30 Days #30 tab Atorvastatin [Lipitor] 20 mg PO HS 30 Days #30 tab Nitroglycerin Sl Tabs [Nitrostat] 0.4 mg SUBLINGUAL Q5M PRN 30 Days #20 tab PRN Reason: Chest Pain Metoprolol Succinate (ER) [Toprol XL] 25 mg PO DAILY 30 Days #30 tab Continue RABEprazole SODIUM 20 mg PO DAILY Doxycycline [Vibramycin] 100 mg PO BID Fluticasone Propion/Salmeterol [Fluticasone-Salmeterol 45-21] 2 puff INHALATION RT-BID hydrOXYzine pamoate [Vistaril] 25 mg PO BID PRN PRN Reason: Anxiety methylPREDNISolone [Medrol Dose Pack] See Taper PO DIRECTED Testosterone Cypionate [Depo-Testosterone] 200 mg IM Q14D Dapagliflozin Propanediol [Farxiga] 5 mg PO DAILY Dulaglutide [Trulicity] 1.5 mg SQ SA Furosemide [Lasix] 20 mg PO DAILY Montelukast [Singulair] 10 mg PO DAILY allopurinoL 100 mg PO DAILY Tamsulosin HCl [Flomax] 0.4 mg PO DAILY Melatonin 3 mg PO HS Discharge Medication List RABEprazole SODIUM 20 mg PO DAILY 08/12/17 [History] Dapagliflozin Propanediol [Farxiga] 5 mg PO DAILY 04/30/23 [History] Doxycycline [Vibramycin] 100 mg PO BID 04/30/23 [History] Dulaglutide [Trulicity] 1.5 mg SQ SA 04/30/23 [History] Fluticasone Propion/Salmeterol [Fluticasone-Salmeterol 45-21] 2 puff INHALATION RT-BID 04/30/23 [History] Furosemide [Lasix] 20 mg PO DAILY 04/30/23 [History] Melatonin 3 mg PO HS 04/30/23 [History] Montelukast [Singulair] 10 mg PO DAILY 04/30/23 [History] Tamsulosin HCl [Flomax] 0.4 mg PO DAILY 04/30/23 [History] Testosterone Cypionate [Depo-Testosterone] 200 mg IM Q14D 04/30/23 [History] allopurinoL 100 mg PO DAILY 04/30/23 [History] hydrOXYzine pamoate [Vistaril] 25 mg PO BID PRN 04/30/23 [History] methylPREDNISolone [Medrol Dose Pack] See Taper PO DIRECTED 04/30/23 [History] Aspirin 81 mg PO DAILY tab 05/04/23 [Rx] Atorvastatin [Lipitor] 20 mg PO HS 30 Days #30 tab 05/04/23 [Rx] Losartan [Cozaar] 25 mg PO HS 30 Days #30 tab 05/04/23 [Rx] Metoprolol Succinate (ER) [Toprol XL] 25 mg PO DAILY 30 Days #30 tab 05/04/23 [Rx] Nitroglycerin Sl Tabs [Nitrostat] 0.4 mg SUBLINGUAL Q5M PRN 30 Days #20 tab 05/04/23 [Rx] busPIRone HCl [Buspar] 5 mg PO BID 30 Days #30 tab 05/04/23 [Rx] Follow up Appointment(s)/Referral(s): Femi Doshi MD [STAFF PHYSICIAN] - 05/09/23 9:30 am Ivett Prince DO [Primary Care Provider] - 05/08/23 12:30 pm (You will see Dr. James Prince in the [place] office.) Patient Instructions/Handouts: After Radial Heart Catheterization (GEN) Discharge Disposition: HOME SELF-CARE
--- NOTE | 2023-05-08 14:32 | CDI ---
Documentation Clarification Form Date: 05/08/2023 02:12:54 PM From: Wanda Hardy RN, CCDS Email: [email or web address] Admit Date: 04/30/2023 12:41:00 AM Patient Name: Gregg Dunbar Visit Number: [id number] Discharge Date: 05/04/2023 04:15:00 PM ATTENTION: The Clinical Documentation Specialists (CDI) and [facility] Coding Staff appreciate your assistance in clarifying documentation. Please respond to the clarification below the line at the bottom and electronically sign. The CDI & [facility] Coding staff will review the response and follow-up if needed. Please note: Queries are made part of the Legal Health Record. If you have any questions, please contact the author of this message via ITS. Dr. James Prince Your patient had SOB and pulmonary vascular congestion on Xray. Based on this information and the findings below, is there an additional diagnosis that is clinically appropriate for this patient? Patient history/risk factors: GERD, fibromyalgia and OA. Presented with worsening SOB, LE edema and orthopnea. Admitted with new onset cardiomyopathy and possible acute community acquired pneumonia. Clinical Indicators: ED: "Acute pulmonary edema, Community acquired pneumonia, Hypoxia." 04/29 CXR: Pulmonary vascular congestion. Low lung volumes with a generalized hazy appearance which could represent atelectasis versus pulmonary edema correlate with serum BNP. 04/29 BNP: 103 04/30 Cardiac ECHO: LVH with reduced systolic function, 40% Discharge summary: "chest x-ray reported low lung volumes with generalized hazy appearance representing atelectasis versus pulmonary edema." 04/30 pox 86%, RR 22 Treatment: O2 2-3LNC on 04/30; IV Lasix 60mg x1 on 04/30 then 40mg po daily 04/30-05/04 Is there an additional diagnosis that is clinically appropriate for this patient? [ X] Acute Pulmonary Edema [ ] No additional diagnosis/Not clinically significant [ ] Unable to determine [ ] Other, please specify MTDD
== END 2023-05-04 16:15 | disposition home or self-care (01) | DRG 286 ==
LOC: EC 18:28 → 4SSUR 04-30 00:41 → 3SCARD 05-03 17:23
PROVIDERS: ADMIT Family Medicine; ATTEND Family Medicine
PROC: 4A023N7 Measurement of Cardiac Sampling and Pressure, Left Heart, Percutaneous Approach (ICD-10-PCS; principal; 2023-05-03 09:00)
PROC: B2111ZZ Fluoroscopy of Multiple Coronary Arteries using Low Osmolar Contrast (ICD-10-PCS; 2023-05-03 09:00)
DX: I25.10 Atherosclerotic heart disease of native coronary artery without angina pectoris (principal); J81.0 Acute pulmonary edema; Z68.43 Body mass index [BMI] 50.0-59.9, adult; I25.5 Ischemic cardiomyopathy; F41.9 Anxiety disorder, unspecified; Z88.5 Allergy status to narcotic agent; E66.01 Morbid (severe) obesity due to excess calories; J44.9 Chronic obstructive pulmonary disease, unspecified; K21.9 Gastro-esophageal reflux disease without esophagitis; I10 Essential (primary) hypertension; M19.90 Unspecified osteoarthritis, unspecified site; M79.7 Fibromyalgia; I27.20 Pulmonary hypertension, unspecified; R09.02 Hypoxemia; I07.1 Rheumatic tricuspid insufficiency; Z79.82 Long term (current) use of aspirin; Z79.84 Long term (current) use of oral hypoglycemic drugs; Z79.899 Other long term (current) drug therapy; Z87.891 Personal history of nicotine dependence; Z86.14 Personal history of Methicillin resistant Staphylococcus aureus infection; Z98.41 Cataract extraction status, right eye
CPT/HCPCS: 36415; 71046; 76937; 80048; 80053; 80061; 83036; 83605; 83690; 83735; 83880; 84100; 84145; 84443; 84484; 85025; 85610; 85730; 87040; 93005; 93306; 93458; 96365; 96375; 99285